=== PATIENT | female | born 1950 | race Caucasian/White ===

== ENCOUNTER 2019-11-12 07:23 | Outpatient (CLI) | payer MEDICARE, SELFPAY ==
[2019-11-12 08:55] LABS: Alanine Aminotransferase 20 U/L (14-59); Aspartate Amino Transferase 17 U/L (15-37); Cholesterol 177 mg/dL (0-200); Creatine Kinase 82 U/L (26-192); HDL Direct 61 mg/dL (40-60); LDL Cholesterol Calculated 104 mg/dL (<130); Triglycerides 61 mg/dL (0-150)
== END 2019-11-12 07:24 | disposition home or self-care (01) ==
LOC: CHSLAB 07:29
PROVIDERS: PCP Internal Medicine; Visit Provider Internal Medicine
DX: E78.2 Mixed hyperlipidemia (principal)
CPT/HCPCS: 36415; 80061; 82550; 84450; 84460

== ENCOUNTER 2019-11-30 10:19 | Outpatient (CLI) | payer MEDICARE, OTHER, SELFPAY ==
--- NOTE | ~2019-11-30 | XR_ITS ---
XR hip BI 2V w AP pelvis 11/30/2019 11:00 Indication: Left hip pain and swelling for one year Procedure: AP pelvis and 2 views of each hip Comparison: No prior studies for comparison. Findings: There is severe osteoarthritis of the left hip with subchondral cyst formation and complete loss of joint space superiorly. There is remodeling of the left femoral head. No acute fracture or t raumatic malalignment. Impression: 1: Severe osteoarthritis of the left hip. Reviewed, dictated and finalized at location B. F SOFTWARE ENGINEER Impression: 1: Severe osteoarthritis of the left hip.
== END 2019-11-30 10:20 | disposition home or self-care (01) ==
PROVIDERS: PCP Internal Medicine; Visit Provider Internal Medicine
DX: M25.552 Pain in left hip (principal); M25.452 Effusion, left hip
CPT/HCPCS: 73521

== ENCOUNTER 2019-12-01 07:32 | Outpatient (CLI) | payer MEDICARE, OTHER, SELFPAY ==
--- NOTE | ~2019-12-01 | MR_ITS ---
EXAMINATION: MR hip LT wo con DATE: 12/01/2019 08:45 INDICATION: Left hip pain. TECHNIQUE: Magnetic resonance imaging (MRI) of the left hip was performed without intravenous contras t. Sequences included axial and coronal PD-weighted FS FSE and axial T1-weighted FSE of the pelvis. S equences of the hip included 2D FIESTA, T1-weighted fast GRE, and axial, coronal, and sagittal PD-noreen ghted FS FSE. COMPARISON: Pelvis and left hip radiographs 11/30/2019 FINDINGS: Bones/cartilage: Bone alignment is normal. No fracture. There is severe lumbar spondylosis. Right hip joint is unremar kable in large qxasn-av-vohy images. Left hip joint demonstrates extensive full-thickness cartilage l oss, large subchondral cysts in the femoral head and acetabulum, flattening of superior femoral head, and enlargement of the acetabulum. Labrum: There is extensive tearing of the left acetabular labrum. Fluid: There is a large left hip joint effusion. There is moderate right-sided trochanteric bursitis and mil d left-sided trochanteric bursitis. Soft tissues: The iliopsoas tendons and gluteal tendons are normal. There is a partial tear of right hamstring orig in. There is mild tendinopathy of left hamstring origin. IMPRESSION: 1. Advanced left hip osteoarthritis. 2. Large left hip joint effusion. Reviewed, dictated and finalized at location A.
== END 2019-12-01 07:33 | disposition home or self-care (01) ==
LOC: CHSIMG 07:34
PROVIDERS: PCP Internal Medicine; Visit Provider Internal Medicine
DX: M25.552 Pain in left hip (principal); M87.9 Osteonecrosis, unspecified
CPT/HCPCS: 73721

== ENCOUNTER 2019-12-24 12:56 | Outpatient (RCR) | payer MEDICARE, OTHER, SELFPAY ==
--- NOTE | 2019-12-24 14:28 | PTOPEVAL ---
Thank you for referring this patient to [facility]. Please review, sign, date and return this plan of care DIRK. I agree with and certify that the following plan of care is medically necessary. Referring Physician Date Admitting Provider: Attending Provider: Jasmeet Poole MD Referring Provider: *PT Outpatient Evaluation Start: 12/24/19 13:08 Freq: Status: Active Protocol: Document 12/24/19 13:09 CONNIE (Rec: 12/24/19 14:26 CONNIE [id number]) Therapy Assessment Status Assessment Status Assessment Status Evaluation Evaluation Information Problem Diagnosis severe left hip OA Onset 12/19/19 Subjective Information Pt. reports that she has been Query Text:As Reported By Patient/ experiencing on/off hip pain Family for many years. She has been using meidcation, however pain has gotten more severe. She describes most pain in the left groin and go into the left thigh. She reports that pain will wake her from sleep at night. She reports that she has to sleep on her right side. She reports that her goal is to walk normal. Prior Level of Function Activity Level (Last 3 Months) Occupation part-time office work Hand Dominance Right Activity of Daily Living Ability Independent Indoor/Home Mobility Independent Community Mobility Independent Stairs Ability Independent Functional Cognition (Planning, Shopping Independent , Taking Medications) Cooking No Cleaning Yes Laundry Yes Shopping Yes Driving Yes Pain Assessment Timing of Pain Assessment Timing of Pain Assessment Pre-Treatment Pain Scale Pain Scale Used Numeric (1 - 10) Self Report Pain Assessment Left Hip(s) Reported Pain Level 5 Pain Frequency Continuous Lowest Pain Intensity 5 Greatest Pain Intensity 10 Pain Aggravating Factors Bending,Exercise/Activity, Prolonged Position Pain Score Pain Score 5: Self Report Lower Extremity Muscle Strength Testing General Lower Extremity Strength Gross Lower Extremity Strength right hip flexion 5/5, left hip flexion 3/5, right knee flexion 5/5, left knee flexion
== END 2019-12-24 16:07 | disposition home or self-care (01) ==
LOC: CHSPT 12:56
PROVIDERS: PCP Internal Medicine; Visit Provider Orthopaedic Surgery
DX: M16.12 Unilateral primary osteoarthritis, left hip (principal)
CPT/HCPCS: 97110; 97116; 97161

== ENCOUNTER 2020-03-07 09:35 | Outpatient (CLI) | payer MEDICARE, OTHER, SELFPAY ==
--- NOTE | ~2020-03-07 | XR_ITS ---
EXAMINATION: XR chest 2V DATE: 03/07/2020 11:04 INDICATION: Preoperative evaluation with abnormal EKG. TECHNIQUE: PA and lateral views of the chest were obtained. COMPARISON: Chest radiograph dated 01/21/2010 FINDINGS: Calcified nodule in the left midlung zone consistent with old granulomatous disease. Mild linear disc oid atelectasis at the right lower lung zone. No other airspace opacities, pulmonary edema, pleural e ffusion or pneumothorax. The cardiomediastinal silhouette is normal. Mild thoracic dextrocurvature wi th moderate to severe thoracolumbar spondylosis. IMPRESSION: 1. Mild discoid atelectasis in the right lower lung. No other acute cardiopulmonary disease. Reviewed, dictated and finalized at location A. IMPRESSION: 1. Mild discoid atelectasis in the right lower lung. No other acute cardiopulmo nary disease.
--- NOTE | 2020-03-07 10:32 | ECG_ITS ---
Measurements Intervals [place] Rate: 64 P: 58 VA: 165 QRS: 5 QRSD: 89 T: 60 QT: 410 QTc: 425 Interpretive Statements SINUS RHYTHM EARLY PRECORDIAL R/S TRANSITION BASELINE ARTIFACT- I, II, III, AVR, AVL, AVF BORDERLINE ECG Electronically Signed On 03-07-2020 10:49:02 CDT by [facility] So D.O.
[2020-03-07 11:05] LABS: Basophils Percent Auto 0.7 % (0.2-1.2); Eosinophils Absolute Auto 0.1 K/mm3 (0-0.3); Eosinophils Percent Auto 1.3 % (0-4.4); Hematocrit 38.7 % (37.0-47.0); Hemoglobin 12.8 g/dL (12.0-15.0); Immature Granulocyte Absolute 0.02 K/mm3 (0.00-0.031); Immature Granulocyte Percent A 0.3 % (0-0.5); Lymphocytes Absolute Auto 1.61 K/mm3 (0.9-3.2); Lymphocytes Percent Auto 27.1 % (18.3-44.2); Mean Corpuscular HGB Conc 33.1 g/dl (32-36); Mean Corpuscular Hemoglobin 31.5 pg (26-34); Mean Corpuscular Volume 95.3 fl (80-100); Monocytes Absolute Auto 0.5 K/mm3 (0.1-0.6); Monocytes Percent Auto 7.6 % (2.6-8.5); Neutrophils Absolute Auto 3.7 K/mm3 (1.3-6.7); Platelet Count Result 244 k/mm3 (150-375); Red Blood Count 4.06 M/mm3 (4.2-5.4); Red Cell Distribution Width 12.9 % (11.5-14.5); White Blood Count 5.9 K/mm3 (4.5-10.0)
[2020-03-07 11:16] LABS: Hemoglobin A1C 5.8 % (<5.7); Urine Cotinine NEGATIVE
[2020-03-07 11:25] LABS: Albumin Level 4.6 g/dL (3.5-5.1); Blood Urea Nitrogen 20 mg/dL (7-17); Calcium 9.2 mg/dL (8.4-10.2); Carbon Dioxide 30 mmol/L (22-30); Chloride 103 mmol/L (98-107); Estimated Glomerular Filt Rate > 60; Glucose 102 mg/dL (65-105); Potassium 3.6 mmol/L (3.4-5.0); Sodium 140 mmol/L (137-145)
== END 2020-03-07 09:36 | disposition home or self-care (01) ==
LOC: ANHSURGERY 09:38
PROVIDERS: PCP Internal Medicine; Visit Provider Orthopaedic Surgery
DX: Z01.818 Encounter for other preprocedural examination (principal); M16.12 Unilateral primary osteoarthritis, left hip; J98.11 Atelectasis
CPT/HCPCS: 36415; 71046; 80048; 80307; 82040; 83036; 85025; 87070; 93005

== ENCOUNTER 2020-03-21 00:14 | Outpatient (CLI) | payer MEDICARE, OTHER, SELFPAY ==
[2020-03-21 20:58] LABS: SARS-CoV-2 RNA PCR Negative
== END 2020-03-21 00:15 | disposition home or self-care (01) ==
LOC: ANHCOVIDDT 00:14
PROVIDERS: PCP Internal Medicine; Visit Provider Orthopaedic Surgery
DX: Z01.812 Encounter for preprocedural laboratory examination (principal); Z11.59 Encounter for screening for other viral diseases; M16.12 Unilateral primary osteoarthritis, left hip
CPT/HCPCS: 87635; C9803; U0003

== ENCOUNTER 2020-03-24 01:10 | Day surgery (SDC) | payer MEDICARE, OTHER, SELFPAY ==
[2020-03-07 10:33] VITALS: BP 151/78; PULSE 68; RESP 16; TEMP 36.6; O2SAT 99; BMI 24.3
[2020-03-07 10:55] VITALS: BMI 24.3
--- NOTE | 2020-03-21 12:22 | HP_ITS ---
DATE OF SERVICE: 03/24/2020 ADMIT DIAGNOSIS: Degenerative joint disease, left hip. HISTORY OF PRESENT ILLNESS: The patient is a 70-year-old female patient of Dr. Wang who presents today for an anterior left total hip arthroplasty. She has been having pain in this hip for 2 years, has progressively worsened to the point now where she has severe pain in the groin anterior lateral hip. She is on Celebrex, which seems to help a little bit. Unfortunately, she continues to have rather severe pain every day. She is miserable. She has x-rays that showed that she has advanced arthritis in that left hip. She has reached to a point where she would rather proceed with total hip arthroplasty rather continue with nonsurgical treatment. PAST MEDICAL AND SURGICAL HISTORY: She has a history of uterine cancer in 1988. She has had hysterectomy in 1989. She has a history of DVT following low back surgery in 2010. She has had 2 low back surgeries in the past, herniated in 2010. CURRENT MEDICATIONS: Takes 1. Celebrex 200 mg daily. 2. Citalopram 10 mg a day. 3. Lovastatin 20 mg daily. ALLERGIES: NO KNOWN DRUG ALLERGIES. FAMILY HISTORY: Significant for diabetes and stroke. SOCIAL HISTORY: She is a nonsmoker. PHYSICAL EXAMINATION: VITAL SIGNS: She is 5 feet tall and 132 pounds. Other vital signs per nursing on the morning of surgery. HEENT: Grossly normal. LUNGS: Clear bilaterally. HEART: Regular rate and rhythm. SKIN: Around her left hip and groin is all normal. EXTREMITIES: She has nvgg-ht-unvjrgon tenderness over the greater trochanter, but normal abduction strength in lateral position. There is crepitus with range of motion of the hip. She has flexion to 110 degrees with pain into the lateral hip. Internal rotation is 15 degrees short of neutral. External rotation is to 25. Stinchfield maneuver causes her pain in the anterolateral hip. Her left leg looks about a quarter of an inch shorter than the right. She has no edema in lower extremity. 2+ dorsalis pedis and posterior tibial pulse. Sensory motors are intact in the left lower extremity. IMAGING DATA: X-rays demonstrate severe xwvf-bk-eivs arthritis. There is collapse of the femoral head with large cyst within the femoral head as well as the acetabulum. IMPRESSION: The patient has advanced arthritis of the left hip with severe symptoms. Again, she feels she is ready to proceed with total hip arthroplasty. Surgical procedure as well as risks and complications were discussed. All questions were answered and we will proceed. The patient will see Dr. Wang for presurgical clearance. She will continue with her Celebrex until the time of surgery, but avoid any aspirin and ibuprofen products 1 week prior. Her nasal swab was negative. Chem panel was all within normal limits. Creatinine 0.9. GFR is greater than 60. Hemoglobin 12.8, platelets 244. PLAN: To use Eliquis for DVT prophylaxis. D I MT: Kim
[2020-03-24] VITALS (23 sets, daily range): BP systolic 106–146; BP diastolic 50–84; PULSE 70–110; RESP 16–20; TEMP 35.9–36.9; O2SAT 93–100
--- NOTE | ~2020-03-24 | XR_ITS ---
EXAMINATION: XR hip LT 1V w AP pelvis DATE: 03/24/2020 11:19 INDICATION: Left total hip arthroplasty TECHNIQUE: 2 views left hip FINDINGS: There is a left total hip arthroplasty in expected position. Subcutaneous gas with soft ti ssue swelling are consistent with recent surgery. There is a catheter in the pelvis, presumably in th e bladder. IMPRESSION: 1. Recent left total hip arthroplasty. Reviewed, dictated and finalized at location A.
--- NOTE | ~2020-03-24 | XR_ITS ---
EXAMINATION: XR surgery orthopedic DATE: 03/24/2020 10:55 INDICATION: Postoperative evaluation following left total hip arthroplasty TECHNIQUE: Anteroposterior and lateral views of the left hip were obtained. COMPARISON: 11/30/2019 FINDINGS: Interval placement of a left total hip arthroplasty which appears well seated in near anatomic alignm ent. Expected subcutaneous gas in the postoperative bed. No fractures identified. Ring catheter pro jects over expected position. IMPRESSION: 1. Left total hip arthroplasty, negative for postoperative purposes. Reviewed, dictated and finalized at location A.
[2020-03-24] MEDS: LACTATED RINGERS 1,000 ML 30 ML IV CONT ×2 (06:30→11:22)
--- NOTE | 2020-03-24 06:44 | WPDANESEPPF ---
Anes - Initial Pre Proc Eval Procedure: Operation Date: 03/24/20 07:30 Proposed Procedures p Left Total Hip Arthroplasty, Direct Anterior Approach - Jasmeet Poole MD Date/Time: 03/24/20 06:44 Surgeon: Jasmeet Poole MD Pre Op Diagnosis: Severe OA Left Hip Patient Data Age: 70 Gender: F Height: 5 ft 1 in Weight: 58.3 kg Last Vital Signs Temp 36.6 C 03/07/20 10:33 Pulse 68 03/07/20 10:33 Resp 16 03/07/20 10:33 BP 151/78 H 03/07/20 10:33 Pulse Ox 99 03/07/20 10:33 Allergies Allergy/AdvReac Type Severity Reaction Status Date / Time No Known Allergies Allergy Verified 03/07/20 10:01 Home Medications Medication Instructions Recorded Confirmed Type acetaminophen [Tylenol Arthritis 1,300 mg PO DAILY 03/07/20 03/07/20 History Pain] celecoxib [Celebrex] 200 mg PO DAILY 03/07/20 03/07/20 History escitalopram oxalate [Lexapro] 10 mg PO DAILY 03/07/20 03/07/20 History Patient hx anesthesia problems: post op nausea/vomiting Family hx anesthesia problems: none PMFSH Past Medical History Medical History (Updated 03/24/20 @ 06:45 by Manny Tucker MD) Anxiety Chronic pain syndrome Uterine cancer Social History Social History Gender identity (if verbalized by the patient): Female Anes - Eval Final PreProcedure Day of Procedure 03/24/20 06:44 Patient weight: normal Heart: regular rate and rhythm Lungs: clear to auscultation Airway: Mallampati scale class II Neurological: alert and oriented Last oral intake: >/= 8 hours ASA classification: III Emergent: no Anesthetic plan: proceed Anesthesia type and monitoring: general ETT and standard monitoring Informed Consent: The patient's anesthetic plan and its attendant risks and benefits were discussed with the patient/family/POA. Questions were solicited and answers provided to the satisfaction of the patient/family/POA.
[2020-03-24] MEDS: SCOPOLAMINE 1.5 MG PATCH TRANSDERM (07:15)
--- NOTE | 2020-03-24 07:19 | WPDHPUPDATE1 ---
History and Physical Update Update Date/Time: 03/24/20 07:19 History and Physical has been reviewed, including an updated exam of the patient. There are NO changes in the patient's condition. Risks, benefits, and alternatives have been discussed and questions answered. Patient agrees to proceed with procedure.
[2020-03-24] MEDS: TRANEXAMIC ACID 1,000MG/ISO100 1,000 MG/100 ML BAG 200 MG IVPB (07:20)
[2020-03-24] MEDS: ceFAZolin 2 GM/D5W 50 ML 2 GM/50 ML BAG IVPB (07:35)
[2020-03-24] MEDS: ceFAZolin SODIUM 1 GM VIAL 3 GM IRRIGATION (08:28)
[2020-03-24] MEDS: TRANEXAMIC ACID 1,000 MG/10 ML AMPUL 1000 MG IV PUSH (10:42)
[2020-03-24] MEDS: ceFAZolin SODIUM 1 GM VIAL IV PUSH (10:43)
--- NOTE | 2020-03-24 12:06 | SUR.PHASEI ---
1205 H&H DRAWN & SENT TO LAB.
[2020-03-24 12:11] LABS: Hematocrit 32.2 % (37.0-47.0); Hemoglobin 10.9 g/dL (12.0-15.0)
--- NOTE | 2020-03-24 13:23 | ADMGEN ---
This patient, Deisy Mittal, was admitted to IMU Room 202-. Patient/family oriented to hospital policies and general routines including ID bracelet, bed and alarms, visiting hours, pain management, procedures, bathroom and other care routines, personal items, smoking policy, room service/diet, and visiting hours. Valuables list has been completed. Information on how to activate the Rapid Response Team has been discussed. Patient/Family are encouraged to report perceived risks to care and to ask questions if they do not understand what they are told or what they should do.
[2020-03-24] MEDS: SODIUM CHLORIDE 0.9% IV 1,000 ML 125 ML IV CONT (14:05)
[2020-03-24 15:30] LABS: Blood Urea Nitrogen 17 mg/dL (7-17); Calcium 8.6 mg/dL (8.4-10.2); Carbon Dioxide 27 mmol/L (22-30); Chloride 104 mmol/L (98-107); Estimated CRCL calculation 44 ml/min; Estimated Glomerular Filt Rate > 60; Glucose 163 mg/dL (65-105); Magnesium 1.5 mg/dL (1.6-2.3); Potassium 3.7 mmol/L (3.4-5.0); Sodium 136 mmol/L (137-145)
--- NOTE | 2020-03-24 15:45 | PM.CNCAR ---
Assessment and Plan Assessment and plan (1) Ventricular tachycardia: Code(s): I47.2 - Ventricular tachycardia <Kristine Zarate APRN - Last Filed: 03/24/20 16:44> Status: Acute <Kristine Zarate APRN - Last Filed: 03/24/20 16:44> Assessment and Plan: During surgery today. No telemetry strips are available. BMP and magnesium were drawn. Potassium 3.7. Will supplement with 40 mEq today. Magnesium 1.5 today. Will supplement with 3 g IV. She states she does take an axuf-twp-fjxgxbo magnesium supplement. BMP and magnesium in the morning. EKG personally reviewed with Dr Alfonso at 1633: Sinus rhythm at 89 bpm. Nonspecifice T-wave abnormality. When compared to EKG don on 03/07/2020 T-Wave abnormality now present. monitoring analyst overnight Check echo. <Kristine Zarate APRN - Last Filed: 03/24/20 16:44> (2) Hypomagnesemia: Code(s): E83.42 - Hypomagnesemia <Kristine Zarate APRN - Last Filed: 03/24/20 16:44> Status: Acute <Kristine Zarate APRN - Last Filed: 03/24/20 16:44> Assessment and Plan: Magnesium as above <Kristine Zarate APRN - Last Filed: 03/24/20 16:44> Additional Plan Plan discussed with Dr Alfonso by phone at 1619 03/24/2020 <Kristine Zarate APRN - Last Filed: 03/24/20 16:44> History of Present Illness History of Present Illness Consult date/time: 03/24/20 15:20 <Kristine Zarate APRN - Last Filed: 03/24/20 16:44> Requesting physician: Jordy Zhang PA <Kristine Zarate APRN - Last Filed: 03/24/20 16:44> Consult reason: Other (Nonsustained ventricular tachycardia during surgery) <Kristine Zarate APRN - Last Filed: 03/24/20 16:44> Reason For Visit: Severe OA Left Hip <Kristine Zarate APRN - Last Filed: 03/24/20 16:44> Narrative: 70-year-old female undergoing anterior left total hip arthroplasty today experience nonsustained ventricular tachycardia during surgery. According to the anesthesia note, she was having short runs of nonsustained VT and was hemodynamically stable. This occurred approximately 2 hours into surgery. She received 100 mg of lidocaine. On telemetry she has not had any ventricular arrhythmias. She has no cardiac history. She denied chest pain, pressure, tightness or squeezing. No exertional shortness of breath with usual activities of daily living. She has not been very active due to pain in her left hip. She denied any lightheadedness, dizziness or syncope. Hyperlipidemia has been treated with diet. She has never smoked. She does have a family history of coronary artery disease with her father having WI at age 47. <Kristine Zarate APRN - Last Filed: 03/24/20 16:44> Review of Systems Review of Systems: All systems reviewed & are unremarkable except as noted in HPI and below <Kristine Zarate APRN - Last Filed: 03/24/20 16:44> Constitutional: Constitutional: Denies fatigue, Denies lethargy, Denies night sweats and Denies weakness <Kristine Zarate APRN - Last Filed: 03/24/20 16:44> Eyes: Eyes: Reports blurry vision (Related to cataracts) <Kristine Zarate APRN - Last Filed: 03/24/20 16:44> ENT: Reports Normal hearing present, Denies vertigo, Denies dizziness, Reports headache(s) (Rare), Denies epistaxis, Reports post nasal drip, Denies tinnitus and Denies sore throat <Kristine Zarate APRN - Last Filed: 03/24/20 16:44> Cardiovascular: Cardiovascular: Denies chest pain with activity, Denies diaphoresis, Denies syncope, Denies rapid heart rate, Denies pedal edema, Denies lightheadedness, Denies dyspnea on exertion, Denies orthopnea and Denies paroxysmal nocturnal dyspnea <Kristine Zarate APRN - Last Filed: 03/24/20 16:44> Respiratory: Respiratory: Reports cough (Occasional), Denies dyspnea on exertion and Denies wheezing <Kristine Zarate, MARKET RESEARCH ANALYST - Last Filed: 03/24/20 16:44> Gastrointestinal: Gastrointestinal: Denies abdominal pain, Denies bloating, Denies change in stool khalif
--- NOTE | 2020-03-24 15:52 | OP_ITS ---
DATE OF PROCEDURE: 03/24/2020 PREOPERATIVE DIAGNOSIS: Advanced osteoarthritis, left hip. POSTOPERATIVE DIAGNOSIS: Advanced osteoarthritis, left hip. PROCEDURE: Direct anterior approach, left total hip arthroplasty. DOPSTER: Jordy Zhang P.A.-C. DESCRIPTION OF PROCEDURE: The patient was brought to the operating room and general anesthesia was administered. The feet were padded. SCDs applied to the legs and boots applied. She was placed on the [employer] table. Left hip prepped and draped in usual fashion. She received 2 g of Ancef, weight based vancomycin, and 1 g of tranexamic acid preoperatively. The left hip was prepped and draped in usual fashion. A 10 cm incision was made 3 cm lateral to the ASIS. Dissection was carried down to the fascia over the tensor fascia sana, which was longitudinally incised and elevated off the anterior 1/2 of the tensor fascia sana muscle. Interval between tensor fascia sana and rectus femoris was developed. Crossing branches of ascending branch, lateral femoral circumflex vessels were isolated, ligated with suture, and divided. Retractors were placed over anterior medial capsule. The hip abducted, internally rotated, and gluteus minimus elevated off lateral capsule. Standard capsulotomy was performed. Femoral neck osteotomy was made according to preoperative templating. A napkin ring of femoral neck was removed and head removed. It measured 48 mm in diameter. The acetabulum was exposed. Labrum excised. The leg was externally rotated, extended and the interval between piriformis tendon and conjoined tendon was incised and this was enough to allow the femur to mobilize anteriorly and the piriformis to flip posterolaterally. We found we did not have to release the conjoined tendon. With the leg back in horizontal position and external rotation, acetabulum was exposed and we medialized with a 45 reamer, went up to 47 and then 48 as the 47 did not reach the periphery and the 48 trial was loose still. The 49 reamer reached the periphery except for the far posterior superior rim of the acetabulum where there was bone wear. The 49 trial fit snugly. The size 50 Biomet G 2 cup was impacted in place and achieved an excellent press-fit. The anterior shell was a millimeter under the anterior wall and about 5 or 6 mm of shell was exposed posterolateral to the posterolateral rim where there was bone wear. A single screw was placed up into the ilium, which also obtained excellent purchase. I should mention that before we reamed with a 49 reamer, we were in view of the anterior and superior acetabular cyst, which we carefully curetted with curettes and packed with cancellous bone that we took from the center of the napkin ring of bone from the femoral neck and some of the femoral head and the cyst was quite sizable for a small person. We then reamed with the 48 in reverse and then reamed with a 49 for final reaming. We placed the insertion hole screw cap and impacted the 36 mm inner diameter liner, which fully seated. The leg was externally rotated and extended and we broached the femur up to a size 8. We trialed and the -6 was a little bit too loose. The -3 was stable and using fluoro, we could see that we had equal leg lengths with a -3. We calcar planed and found that there was still a little bit of wiggle in the size 8 broach and we inserted the size 9 broach, which took a little bit more work to seat flush with the neck cut and was stable and torsional at varus and valgus stress. We chose the size 9 taper lock standard offset stem and this was impacted and fully seated coming to rest about a millimeter above the calcar plane neck cut would go no further. We trialed and again the -6 was a little bit loose and the -3 was trialed and was more appropriate. We irrigated the wound again
--- NOTE | 2020-03-24 16:09 | ECG_ITS ---
Measurements Intervals [place] Rate: 89 P: 62 VT: 166 QRS: 12 QRSD: 86 T: 10 QT: 383 QTc: 468 Interpretive Statements SINUS RHYTHM BORDERLINE ST-T WAVE ABNORMALITY- DIFFUSE LEADS BASELINE ARTIFACT- I, II, III, AVF, V2 BORDERLINE ECG Electronically Signed On 03-24-2020 17:04:29 CDT by [facility] So D.O.
--- NOTE | 2020-03-24 16:13 | PM.IMCN ---
Assessment and Plan Assessment and plan (1) Ventricular tachycardia: Code(s): I47.2 - Ventricular tachycardia Status: Acute Assessment and Plan: Several beats of NSVT were reported intra-operatively. There are no telemetry stips for review at this time. She was given 100mg of lidocaine per anesthesiology. She has no prior cardiac hx. Cardiology is on board and recommendations are greatly appreciated. Potassium is 3.7mg/dL and she will be given 40mEq PO potassium chloride. Magnesium is 1.5mg/dL and she will be given 3g IV magnesium sulfate. Continue telemetry. Plan for echocardiogram and 12 lead EKG. Continue to monitor electrolytes. (2) Status post total hip replacement, left: Code(s): Z96.642 - Presence of left artificial hip joint Status: Acute Assessment and Plan: The patient is s/p left total hip arthroplasty with a direct anterior approach by Dr. Poole due to severe, disabling, lifestyle-limiting pain. She tolerated the procedure well and her pain is well-controlled. She did have several runs of NSVT as above. Post-op care including DVT prophylaxis, wound/wound vac care, PT/OT and weight bearing, and pain management per orthopedic surgery. Continue to monitor. (3) Hypomagnesemia: Code(s): E83.42 - Hypomagnesemia Status: Acute Assessment and Plan: Magnesium was low at 1.5mg/dL. She will be given 3g IV magnesium sulfate. She does report that she takes an aqez-aij-xetzuqu magnesium supplement at home. Continue to monitor with repeat magnesium tomorrow. (4) Anxiety: Code(s): F41.9 - Anxiety disorder, unspecified Status: Acute Assessment and Plan: Stable. Continue lexapro. (5) Anemia: Qualifiers: Anemia type: unspecified type Qualified Code(s): D64.9 - Anemia, unspecified Code(s): D64.9 - Anemia, unspecified Status: Acute Assessment and Plan: Hb was 12.8 and Hct 38.7 03/07/20 on pre-op lab evaluation. Repeat Hb is 10.9 and Hct 32.2 post-op. This is likely due to acute blood loss from her surgery. EBL . Plan to continue to monitor H&H closely. Transfuse PRN Hb <7. (6) Elevated random blood glucose level: Code(s): R73.09 - Other abnormal glucose Status: Acute Assessment and Plan: Random glucose was 163. Hemoglobin A1C was 5.8 03/07/20. Continue to monitor FBS daily. (7) Hyperlipidemia: Qualifiers: Hyperlipidemia type: unspecified Qualified Code(s): E78.5 - Hyperlipidemia, unspecified Code(s): E78.5 - Hyperlipidemia, unspecified Status: Acute Assessment and Plan: She reports a hx of hyperlipidemia and previously on a cholesterol medication which she stopped taking. Will check a lipid panel. (8) DVT prophylaxis: Code(s): Z29.9 - Encounter for prophylactic measures, unspecified Status: Acute Assessment and Plan: Per ortho. Eliquis has been ordered for tomorrow. Continue SCDs per ortho. HPI Data of Consult Consult date: 03/24/20 Requesting Physician: Jasmeet Poole MD Primary Care Provider: Veronica Wang MD Consult Narrative Narrative: Deisy Mittal is a 70 year old female with PMH significant for osteoarthritis, uterine cancer s/p hysterectomy and salpingo-oophorectomy, and anxiety who presented to [facility] 03[facility]24[facility]20 for an elective left total hip arthroplasty by Dr. Poole. She had a 2 year history of severe and disabling left hip pain in the setting of advanced osteoarthritis and failed conservative management. The hospitalist service is asked to see her in consultation as she developed several runs of nonsustained ventricular tachycardia during surgery. She remained hemodynamically stable during the episode. There are no temeletry strips available for review from the episodes at this time. She was given 100mg of lidocaine and admitted to the IMU for continued telemetry monitoring. Cardiology was
[2020-03-24] MEDS: POTASSIUM CHLORIDE 20 MEQ PACKET (FOR LIQUID) 40 MEQ PO (16:48)
[2020-03-24] MEDS: SENNA/DOCUSATE SODIUM TABLET 2 TAB PO (16:49)
[2020-03-24] MEDS: MAGNESIUM SULF 2 GM/WATER 50ML 2 GM/50 ML BAG IVPB (18:04)
[2020-03-24] MEDS: ACETAMINOPHEN 500 MG TABLET 1000 MG PO ×2 (18:08→23:15)
[2020-03-24] MEDS: MAGNESIUM SULF 1 GM/D5W 100 ML 1 GM/100 ML BAG IVPB (18:43)
[2020-03-24] MEDS: FAMOTIDINE 20 MG TABLET PO (21:24)
[2020-03-25] VITALS (7 sets, daily range): BP systolic 104–132; BP diastolic 45–61; PULSE 66–94; RESP 16–18; TEMP 36.1–36.7; O2SAT 97
--- NOTE | 2020-03-25 | ECHO_ITS ---
Patient Info Name: Deisy Mittal Age: 70 years : 1950 Gender: Female Ht: 61 in Wt: 127 lbs BSA: 1.58 m2 HR: 82 bpm BP: 104 / 45 mmHg Technical Quality: Good Exam Date: 03/25/2020 9:23 AM Exam Location: [facility] Pulmonary Patient Status: Outpatient Admit Date: 03/24/2020 Staff Ordering Physician: Kristine Zarate APRN Shactor: Danie Jacques, KANE, RT Attending Provider: Jasmeet Poole MD Referring Physician: Elliot WHIPPLE; Exam Type: CA echo doppler color flow Study Info Indications I47.0 - Re-entry ventricular arrhythmia Complete two-dimensional, color flow and Doppler transthoracic echocardiogram is performed. Summary 1. Normal LV size and wall thickness; normal LV systolic and diastolic function, ejection fraction more than 70%. Global longitudinal strain-26%. Normal valvular structure, trace MR. Normal pericardium, no significant pericardial effusion. Left Ventricle Left ventricular chamber dimension is normal. Left ventricular systolic function is normal, estimated at >70%. There is no increased left ventricular wall thickness. Left ventricular septal wall motion is normal. The left ventricular diastolic function is normal. Right Ventricle Right ventricular chamber dimension is normal. Right ventricular systolic function is normal. Left Atria Left atrial chamber dimension is normal. Right Atria Right atrial chamber dimension is normal. Aortic Valve There is no aortic valve sclerosis. There is no aortic valve stenosis. There is trace aortic valve regurgitation. Pulmonic Valve The pulmonic valve is normal. There is mild pulmonic regurgitation. Mitral Valve The mitral valve has normal leaflets. There is no mitral valve stenosis. There is trace mitral valve regurgitation. Tricuspid Valve There is no significant tricuspid valve stenosis. There is trace tricuspid valve regurgitation. Pericardium/Pleural The pericardium appears normal. There is no pericardial effusion. Aorta The aortic root size at the sinus of Valsalva is normal. The prox ascending aorta size is normal. Left Ventricular Outflow Tract Name Value Normal LVOT 2D LVOT Diameter 1.9 cm LVOT Doppler LVOT Peak Gradient 8 mmHg LVOT Mean Gradient 4 mmHg LVOT VTI 25 cm LVOT VTI/AV VTI Ratio 0.9 LVOT Stroke Volume 69 ml LVOT CO 5.7 l/min LVOT CI 3.6 l/min/m2 Mitral Valve Name Value Normal MV Doppler MV Decel Bullock 464 cm/s2 MV PHT 55 ms MV Area (PHT) 4.0 cm2 4.0-5.0 MV Diastolic Function
[2020-03-25 05:02] LABS: Basophils Percent Auto 0.1 % (0.2-1.2); Hematocrit 30.8 % (37.0-47.0); Hemoglobin 10.3 g/dL (12.0-15.0); Immature Granulocyte Absolute 0.07 K/mm3 (0.00-0.031); Immature Granulocyte Percent A 0.4 % (0-0.5); Lymphocytes Absolute Auto 1.41 K/mm3 (0.9-3.2); Lymphocytes Percent Auto 8.6 % (18.3-44.2); Mean Corpuscular HGB Conc 33.4 g/dl (32-36); Mean Corpuscular Hemoglobin 31.6 pg (26-34); Mean Corpuscular Volume 94.5 fl (80-100); Monocytes Absolute Auto 1.1 K/mm3 (0.1-0.6); Monocytes Percent Auto 6.4 % (2.6-8.5); Neutrophils Absolute Auto 13.9 K/mm3 (1.3-6.7); Neutrophils Percent Auto 84.5 % (45.5-73.1); Platelet Count Result 233 k/mm3 (150-375); Red Blood Count 3.26 M/mm3 (4.2-5.4); Red Cell Distribution Width 12.8 % (11.5-14.5); White Blood Count 16.5 K/mm3 (4.5-10.0)
[2020-03-25 05:15] LABS: Blood Urea Nitrogen 12 mg/dL (7-17); Calcium 8.7 mg/dL (8.4-10.2); Carbon Dioxide 27 mmol/L (22-30); Chloride 105 mmol/L (98-107); Cholesterol 181 mg/dL (0-200); Estimated CRCL calculation 39 ml/min; Estimated Glomerular Filt Rate > 60; Glucose 106 mg/dL (65-105); HDL Direct 50 mg/dL; Magnesium 2.8 mg/dL (1.6-2.3); Potassium 4.4 mmol/L (3.4-5.0); Sodium 137 mmol/L (137-145); Triglycerides 57 mg/dL (<150)
[2020-03-25 05:26] LABS: LDL Cholesterol Direct 94 mg/dL
[2020-03-25] MEDS: ACETAMINOPHEN 500 MG TABLET 1000 MG PO ×2 (06:18→12:21)
--- NOTE | 2020-03-25 06:24 | PM.PNORT ---
Progress Note: A&P Additional Plan POD 1 alert min pain , pt has been up to restroom multiple times overnight and doing well, NSR-overnight, card. has seen pt-plan an echo today, pt has changes on EKG post-op relative to pre-op. labs-noted, will plan to send home when cardiology feels she is stable, no episodes of V-tach since surg Subjective Subjective Date/Time Seen: 03/25/20 06:24 Objective Data Vital Signs Vital Signs: Vital Signs - 24 hr 03/24/20 11:22 03/24/20 11:35 03/24/20 11:50 Temperature 36.4 C Pulse Rate 110 H 95 97 Respiratory Rate 16 18 18 Blood Pressure 145/75 H 118/59 L 108/62 Pulse Oximetry 98 97 95 03/24/20 12:05 03/24/20 12:20 03/24/20 12:35 Temperature 36.3 C L Pulse Rate 97 93 90 Respiratory Rate 20 20 20 Blood Pressure 106/57 L 130/56 L 111/57 L Pulse Oximetry 93 97 98 03/24/20 12:50 03/24/20 13:26 03/24/20 13:30 Temperature 36.5 C 36.9 C Pulse Rate 98 91 94 Respiratory Rate 16 18 Blood Pressure 116/61 118/62 Pulse Oximetry 98 96 03/24/20 14:00 03/24/20 14:15 03/24/20 16:00 Temperature 36.6 C Pulse Rate 88 96 88 Respiratory Rate 16 Blood Pressure 118/58 L Pulse Oximetry 98 03/24/20 16:20 03/24/20 16:59 03/24/20 18:00 Temperature 35.9 C L Pulse Rate 88 87 Respiratory Rate 18 Blood Pressure 123/56 L Pulse Oximetry 100 99 03/24/20 19:49 03/24/20 20:00 03/24/20 20:22 Temperature 36.6 C Pulse Rate 87 76 Respiratory Rate 18 18 Blood Pressure 120/50 L Pulse Oximetry 100 93 97 03/24/20 20:38 03/24/20 22:00 03/24/20 23:35 Temperature 36.1 C L Pulse Rate 78 80 Respiratory Rate 16 Blood Pressure 127/61 Pulse Oximetry 93 97 03/24/20 23:50 03/25/20 02:00 03/25/20 04:00 Temperature 36.7 C Pulse Rate 76 78 66 Respiratory Rate 16 16 Blood Pressure 104/45 L Pulse Oximetry 97 97 03/25/20 05:45 Temperature Pulse Rate 78 Respiratory Rate Blood Pressure Pulse Oximetry Intake/Output Intake/Output: Intake & Output 03/22/20 03/23/20 03/24/20 03/25/20 23:59 23:59 23:59 23:59 Intake Total 1937 300 Output Total 580 800 Balance 1357 -500 Meds/Results Medications: Active Medications Generic Name Dose Route Start Last Admin Trade Name Freq PRN Reason Stop Dose Admin Acetaminophen 1,000 mg 03/24/20 12:00 03/25/20 06:18 Tylenol Tablet PO 1,000 mg Q6HR ROSELYN Administration Al Hydrox/Mg Hydrox/Simethicone 30 ml 03/24/20 11:29 Mylanta PO Q6H PRN Indigestion Apixaban 2.5 mg 03/25/20 09:00 Eliquis PO 04/28/20 21:01 Q12HR ROSELYN Bisacodyl 10 mg 03/24/20 11:29 Dulcolax Suppository RECTAL DAILY PRN Constipation Celecoxib 100 mg 03/25/20 09:00 Celebrex PO DAILY ROSELYN Famotidine 20 mg 03/24/20 21:00 03/24/20 21:24 Pepcid PO 20 mg Q12HR ROSELYN Administration Hydroxyzine HCl 50 mg 03/24/20 11:29 Atarax Tablet PO Q4H PRN Itching Vancomycin HCl 1,000 mg in 250 mls @ 250 mls/hr 03/24/20 19:00 03/25/20 06:19 Vancomycin 1,000 Mg/D5w 250 Ml IVPB 03/25/20 07:59 250 mls/hr Q12H ROSELYN Administration Cefazolin Sodium 1 gm in 50 mls @ 100 mls/hr 03/24/20 14:00 03/25/20 06:00 Ancef 1 Gm/D5w 50 Ml Pm IVPB 03/25/20 06:29 Infused Q8H ROSELYN Infusion Magnesium Hydroxide 30 ml 03/24/20 11:27 Milk Of Magnesia PO BID PRN Constipation Morphine Sulfate 2 mg 03/24/20 11:29 Morphine Sulfate Inj IV PUSH Q3H PRN Pain Rated 7-10 Naloxone HCl 0.1 mg 03/24/20 11:27 Narcan IV PUSH Q2M PRN Opiate Reversal Ondansetron HCl 4 mg 03/24/20 11:29 Zofran Inj IV PUSH Q4H PRN Nausea And Vomiting Oxycodone HCl 2.5 mg 03/24/20 13:00 03/25/20 05:29 Roxicodone Ir Tablet PO 2.5 mg Q4HR ROSELYN Administration Oxycodone HCl 2.5 mg 03/24/20 11:29 Roxicodone Ir Tablet PO Q4H PRN Pain Rated 4-6 Polyethylene Glycol 17 gm 03/25/20 09:00 Miralax
--- NOTE | 2020-03-25 09:17 | PM.PNCARD ---
Progress Note: A&P Assessment and Plan (1) NSVT (nonsustained ventricular tachycardia): Code(s): I47.2 - Ventricular tachycardia Status: Acute Assessment and Plan: reported NSVT postoperatively in the setting of low magnesium. Magnesium has been supplemented. On telemetry, patient has been in sinus rhythm with PVCs. No sustained ventricular arrhythmias. She is currently stable from cardiac standpoint. Echocardiogram is pending. If echocardiogram is unremarkable, then no further cardiac testing is anticipated while patient is in the hospital. She can be seen in the outpatient cardiology clinic for further evaluation as necessary. (2) Osteoarthritis of left hip: Qualifiers: Osteoarthritis type: unspecified Qualified Code(s): M16.12 - Unilateral primary osteoarthritis, left hip Code(s): M16.12 - Unilateral primary osteoarthritis, left hip Status: Acute Assessment and Plan: Management as per Orthopedic surgery. Subjective Date/time seen: 03/25/20 09:17 Date of service: 03/25/2020 chief complaint: Joint pain interval history- Patient is status post left total hip arthroplasty, postoperatively patient reportedly had nonsustained ventricular tachycardia. On telemetry, she is in sinus rhythm with PVCs without sustained arrhythmias. Her magnesium was low, which has been supplemented and is normal now. Patient denies chest pain, shortness of breath, palpitation, dizziness or syncope. Review of Systems Constitutional: Constitutional: Denies chills, Denies fatigue, Denies fever(s) and Denies headache(s) Eyes: Eyes: Reports as per HPI, Denies change in vision, Denies loss of vision and Denies eye pain ENT: Reports as per HPI, Reports Normal hearing present, Denies headache(s), Denies lip swelling, Denies epistaxis and Denies sore throat Cardiovascular: Cardiovascular: Reports as per HPI, Denies chest pain, Denies syncope, Denies irregular heart rhythm, Denies lightheadedness and Denies dyspnea Respiratory: Respiratory: Reports as per HPI, Denies cough, Denies dyspnea and Denies wheezing Gastrointestinal: Gastrointestinal: Reports as per HPI, Denies abdominal pain, Denies melena, Denies nausea and Denies vomiting Genitourinary: Genitourinary: Reports as per HPI Musculoskeletal: Musculoskeletal: Reports as per HPI, Denies myalgias, Reports arthralgias, Reports limited range of motion, Denies muscle cramps and Denies muscle weakness Integumentary/Breasts: Skin/Breast: Reports as per HPI, Denies pruritus and Denies rash Neurologic: Reports as per HPI, Reports Normal hearing present, Denies behavioral changes, Denies syncope, Denies headache(s) and Denies loss of vision Psychiatric: Psychiatric: Reports as per HPI, Denies anxiety, Denies behavioral changes and Denies depression Endocrine: Endocrine: Reports as per HPI, Denies fatigue, Denies polydipsia and Denies polyuria Hematologic/Lymphatic: Hematologic/Lymphatic: Reports as per HPI, Denies easy bleeding and Denies easy bruising Allergic/Immunologic: Allergic/Immunologic: Reports as per HPI, Denies lip swelling and Denies wheezing Exam Const: General: no acute distress, alert and awake HENMT: Head: normocephalic and atraumatic Ears: hearing grossly normal bilaterally and external ears normal General nose exam: Normal external nose present and no epistaxis Face and sinus: normal facial exam and no ecchymosis Mouth: Yes tongue normal and Yes moist mucous membranes Teeth and gingiva: dentition normal Eyes: Conjunctivae: conjunctivae normal Sclera: sclerae normal Pupils: Equal, round and reactive pupils present EOM: EOMs intact bilaterally Neck: Neck: normal visual inspection, supple and no JVD Thyroid: thyroid normal Carotids: normal carotid upstroke Resp: Effort & Inspection: normal respiratory effort and able to speak in complete sentences Auscultation: clear to auscultation bilaterally Cardio: Jugular venous di
--- NOTE | 2020-03-25 10:40 | PC.NURSE ---
Attempted to give pt morning meds at 0900, echo in process. Attempted again at 1040 and pt was with PT
[2020-03-25] MEDS: APIXABAN 2.5 MG TABLET PO (11:11)
[2020-03-25] MEDS: FAMOTIDINE 20 MG TABLET PO (11:11)
[2020-03-25] MEDS: SENNA/DOCUSATE SODIUM TABLET 2 TAB PO (11:11)
[2020-03-25] MEDS: polyethylene glycoL 3350 17 GM POWD.PACK PO (11:12)
[2020-03-25] MEDS: CELECOXIB 100 MG CAPSULE PO (12:21)
--- NOTE | 2020-03-25 14:42 | PM.IMPN ---
Progress Note: A&P Assessment and Plan (1) Ventricular tachycardia: Code(s): I47.2 - Ventricular tachycardia Status: Acute Assessment and Plan: Several beats of NSVT were reported intra-operatively. There are no telemetry stips for review from this episode. She was given 100mg of lidocaine per anesthesiology. She has no prior cardiac hx. Cardiology is on board and recommendations are greatly appreciated. Potassium and magnesium were supplemented. Telemetry was reviewed and revealed sinus rhythm with PVCs with and further episodes of NSVT. Echocardiogram revealed normal LV size and wall thickness, normal LV systolic and diastolic function, ejection fraction more than 70%, global longitudinal strain-26%, normal valvular structure, trace MR, normal pericardium, and no significant pericardial effusion. She was cleared for discharge from a cardiology standpoint pending echocardiogram as no further testing is indicated from a cardiology standpoint while in the hospital. She was advised to follow-up with her PCP and cardiology outpatient in the further as necessary. (2) Status post total hip replacement, left: Code(s): Z96.642 - Presence of left artificial hip joint Status: Acute Assessment and Plan: The patient is s/p left total hip arthroplasty with a direct anterior approach by Dr. Poole due to severe, disabling, lifestyle-limiting pain. She tolerated the procedure well and her pain is well-controlled. She did have several runs of NSVT nikhil-operatively as above. Post-op care including DVT prophylaxis, wound/wound vac care, PT/OT and weight bearing, and pain management per orthopedic surgery. Continue to monitor. (3) Hypomagnesemia: Code(s): E83.42 - Hypomagnesemia Status: Acute Assessment and Plan: Magnesium was low at 1.5mg/dL. She will be given 3g IV magnesium sulfate. She does report that she takes an [id number] magnesium supplement at home. Magnesium is sufficient today at 2.8. (4) Anxiety: Code(s): F41.9 - Anxiety disorder, unspecified Status: Acute Assessment and Plan: Stable. Continue lexapro. (5) Anemia: Qualifiers: Anemia type: unspecified type Qualified Code(s): D64.9 - Anemia, unspecified Code(s): D64.9 - Anemia, unspecified Status: Acute Assessment and Plan: Hb was 12.8 and Hct 38.7 03/07/20 on pre-op lab evaluation. Hb is stable at 10.3 and Hct 30.8 today. This is likely due to acute blood loss from her surgery. EBL was 200cc. Continue to monitor. (6) Elevated random blood glucose level: Code(s): R73.09 - Other abnormal glucose Status: Acute Assessment and Plan: Random glucose was 163. Hemoglobin A1C was 5.8 03/07/20. Fasting glucose was 106. Encourage diet and lifestyle interventions. (7) Hyperlipidemia: Qualifiers: Hyperlipidemia type: unspecified Qualified Code(s): E78.5 - Hyperlipidemia, unspecified Code(s): E78.5 - Hyperlipidemia, unspecified Status: Acute Assessment and Plan: She reports a hx of hyperlipidemia and previously on a cholesterol medication. Triglycerides 57, total cholesterol 181, LDL 94, and HDL 50. Recommend follow-up with PCP to determine whether or not to initiate statin therapy. (8) DVT prophylaxis: Code(s): Z29.9 - Encounter for prophylactic measures, unspecified Status: Acute Assessment and Plan: Eliquis and SCDs per ortho. Subjective Date/time seen: 03/25/20 14:42 Interval history: Mrs. Mittal is a 70 y.o. female who is seen in follow-up for NSVT s/p left total hip arthroplasty via direct anterior approach by Dr. Poole 03/24/30. She is POD#1 and she is doing very well. The kaplan was removed and she voided without difficulty. Her pain is well-controlled and she currently rates her pain at 1-2/10. She is tolerating PO intake well and reported only mild nausea earlier today.
--- NOTE | 2020-03-25 17:36 | DS_ITS ---
DATE OF DISCHARGE: 03/25/2020 DIAGNOSIS: Degenerative joint disease, left hip. The patient is a 70-year-old female, patient of Dr. Poole, who underwent a left anterior total hip arthroplasty on March 24. During surgery, she had 2 runs of ventricular tachycardia. Otherwise, she was stable throughout. She had a dose of lidocaine given when these happen, she has not had any subsequent ventricular tachycardias. Postoperatively, she has been on monitored bed. Postoperatively, she has been afebrile, vital signs have been stable. Otherwise, the pain is well controlled. She is on scheduled Tylenol, on 2.5 oxycodone. She is on Eliquis for 6 weeks for DVT prophylaxis. Cardiology has seen the patient immediately postop, she had some changes on her EKG. Postop relative to preop, they have ordered an echocardiogram to be done on March 25 for additional evaluation. Postop day 1, hemoglobin was 10.3, platelets of 233. Chem panel is all within normal limits. Magnesium was low on postop day 1, 1.5, treated this with IV magnesium, subsequently went up to 2.8, which is on a high side. The patient is weightbearing as tolerated with a walker. I would like to continue to have her use a walker for the 1st month. She had a large cyst in the acetabulum that was packed with bone and will allow this consolidate over the 1st month. The patient was advised to keep the leg elevated at home to prevent swelling. When she is cleared and stable with cardiology, will discharge to home hopefully on March 25. If cardiology feels she needs to stay additional night for monitoring, then we will hold on the discharge until March 26. D I MT: Kim
== END 2020-03-25 16:39 | disposition home or self-care (01) ==
LOC: ANHSURGERY 07:47 → ANHIMU 13:11
PROVIDERS: Nurse Practitioner Adult Health; Physician Assistant Surgical; PCP Internal Medicine; Visit Provider Orthopaedic Surgery
PROC: (CPT 27130; principal; 2020-03-24 07:30)
DX: M16.12 Unilateral primary osteoarthritis, left hip (principal); M85.48 Solitary bone cyst, other site; D64.9 Anemia, unspecified; I47.2 Ventricular tachycardia; E83.42 Hypomagnesemia; R73.09 Other abnormal glucose; E78.5 Hyperlipidemia, unspecified; F41.9 Anxiety disorder, unspecified; Z86.718 Personal history of other venous thrombosis and embolism; Z85.42 Personal history of malignant neoplasm of other parts of uterus
CPT/HCPCS: 27130; 36415; 73501; 80048; 80061; 83735; 85014; 85018; 85025; 86850; 86900; 86901; 93005; 93306; 97110; 97116; 97161; 97165; 97530; A9270; C1776; J0131; J0171; J0330; J0690; J1100; J1885; J2270; J2405; J2704; J2795; J3010; J3370; J3475; J7030; J7120

== ENCOUNTER 2021-01-01 08:23 | Outpatient (CLI) | payer MEDICARE, SELFPAY ==
[2021-01-01 08:40] LABS: Basophils Absolute Auto 0.04 K/mm3 (0.00-0.10); Basophils Percent Auto 0.7 % (0.0-1.0); Eosinophils Absolute Auto 0.15 K/mm3 (0.02-0.50); Eosinophils Percent Auto 2.6 % (1.0-6.0); Hematocrit 37.6 % (35.0-42.0); Hemoglobin 12.4 g/dL (11.7-13.8); Immature Granulocyte Absolute 0.01 K/mm3 (0.00-0.00); Immature Granulocyte Percent A 0.2 % (0.0-0.0); Lymphocytes Absolute Auto 1.79 K/mm3 (1.10-4.50); Lymphocytes Percent Auto 31.5 % (18.0-42.0); Mean Corpuscular Hemoglobin 30.9 pg (27.0-31.0); Mean Corpuscular Volume 93.8 fL (78.0-102.0); Mean Platelet Volume 9.7 fl (9.2-11.8); Monocytes Absolute Auto 0.37 K/mm3 (0.10-0.90); Monocytes Percent Auto 6.5 % (2.0-11.0); Neutrophils Absolute Auto 3.3 K/mm3 (1.7-7.2); Neutrophils Percent Auto 58.5 % (50.0-70.0); Platelet Count Result 239 K/mm3 (150-420); Red Blood Count 4.01 M/mm3 (4.20-5.40); Red Cell Distribution Width 12.6 % (11.6-14.4); White Blood Count 5.7 K/mm3 (4.8-10.8)
[2021-01-01 08:41] LABS: Add Urine Microscopic? YES; Appearance Urine Clear (Clear); Bilirubin Urine Negative (Negative); Blood Urine 2+ (Negative); Color Urine Yellow (Yellow); Glucose Urine UA Negative (Negative); Ketones Urine Negative (Negative); Leukocyte Esterase Ur 1+ (Negative); Nitrate Urine Negative (Negative); Protein Urine Negative (Negative); Urobilinogen Urine 0.2 mg/dL (0.2-1.0); pH Urine 6.5 (5.0-8.0)
[2021-01-01 08:49] LABS: Bacteria Urine 2+ /hpf; Squamous Epithelial Cell Urine Few /hpf (Few)
[2021-01-01 08:50] LABS: Hemoglobin A1C 5.4 % (<5.7)
[2021-01-01 09:37] LABS: Alanine Aminotransferase 19 U/L (14-59); Albumin Level 3.7 g/dL (3.4-5.0); Alkaline Phosphatase 91 U/L (46-116); Anion Gap 5 mmol/L (8-16); Aspartate Amino Transferase 12 U/L (15-37); Bilirubin,Total 0.5 mg/dL (0.00-1.00); Blood Urea Nitrogen 14 mg/dL (7-18); Calcium 8.8 mg/dL (8.5-10.1); Carbon Dioxide 30 mmol/L (21-32); Chloride 104 mmol/L (98-108); Cholesterol 247 mg/dL (0-200); Creatine Kinase 84 U/L (26-192); Estimated Glomerular Filt Rate 55; Ferritin 62 ng/mL (8-252); Free T4 Free Thyroxine 1.06 ng/dL (0.76-1.46); Glucose 88 mg/dL (70-99); HDL Direct 56 mg/dL (40-60); Iron 105 ug/dL (50-170); LDL Cholesterol Calculated 168 mg/dL (<130); Magnesium 1.9 mg/dL (1.8-2.4); Osmolality Calculated 287 mOsm/kg (285-295); Percent Iron Saturation 34 % (12-57); Potassium 3.8 mmol/L (3.5-5.1); Sodium 139 mmol/L (136-145); Thyroid Stimulating Hormone 1.57 uIU/mL (0.36-3.74); Total Protein 7.2 g/dL (6.4-8.2); Triglycerides 116 mg/dL (0-150)
== END 2021-01-01 08:24 | disposition home or self-care (01) ==
LOC: CHSLAB 08:26
PROVIDERS: PCP Internal Medicine; Visit Provider Internal Medicine
DX: M81.0 Age-related osteoporosis without current pathological fracture (principal); E78.2 Mixed hyperlipidemia; D64.9 Anemia, unspecified; R73.01 Impaired fasting glucose
CPT/HCPCS: 36415; 80053; 80061; 81001; 82550; 82728; 83036; 83540; 83550; 83735; 84439; 84443; 85025

== ENCOUNTER 2021-02-18 09:25 | Outpatient (CLI) | payer MEDICARE, OTHER, SELFPAY ==
--- NOTE | ~2021-02-18 | MM_ITS ---
EXAMINATION: MM screening [facility] BI w lionel HISTORY: Screening mammogram TECHNIQUE: Craniocaudal and mediolateral oblique 3-D tomosynthesis images were obtained and synthetic 2-D images were generated. CAD analysis was submitted and interpreted. COMPARISON: 01/20/2018, 12/09/2016 BREAST PARENCHYMAL COMPOSITION: The breasts are almost entirely fatty. FINDINGS: There is no evidence of suspicious mass, calcification, or architectural distortion to sugg est malignancy in either breast. There has been no suspicious interval change. IMPRESSION: 1. No mammographic evidence of malignancy. 2. Recommend routine screening mammography in one year. BI-RADS Category 1: Negative Reviewed, dictated and finalized at location A.
--- NOTE | ~2021-02-18 | DEXA_ITS ---
Bone Density Report Name: Deisy Mittal Age: 70 Sex: Female Ethnicity: White Date of : 1950 Indication: postmenopausal; screening for osteoporosis; height loss; hysterectomy; Referring Provider: Veronica Wang Study: Bone densitometry was performed. Exam Date: February 18, 2021 Accession number: [id number] Bone Density: Region BMD T-score Z-score Classification AP Spine(L1-L4) 0.916 -1.2 0.9 Osteopenia Femoral Neck (Right) 0.643 -1.9 -0.1 Osteopenia Total Hip (Right) 0.763 -1.5 0.0 Osteopenia World Health Organization criteria for BMD impression classify patients as: Normal (T-score at or above -1.0), Osteopenia (T-score between -1.0 and -2.5), or Osteoporosis (T-score at or below -2.5). 10-year Fracture Risk(1): Major Osteoporotic Fracture 11% Hip Fracture 1.9% Reported Risk Factors: [place] (), Neck BMD=0.643, BMI=25.4 (1) FRAX(R) Version 3.08. Fracture probability calculated for an untreated patient. Fracture probability may be lower if the patient has received treatment. Clinical Information Provided by Patient: Has used the following medications: Vitamin D, Calcium Has the following medical conditions: Hysterectomy Patient maximum height was 61 Menopause Age: 31 No regular weight bearing exercise Does not regularly consume dairy products Drinks caffeinated beverages Onset of menses at age 14 Number of children 2 Impression: The patient has low bone mass, based on the Right Femoral Neck T-score. The patient has an estimated ten-year risk of hip fracture of 1.9% and an estimated ten-year risk of major fracture of 11%, based on the WHO FRAX algorithm. Discussion: BONE DENSITY IS LOW AT ONE OR MORE SKELETAL SITES. This patient's lowest T-score is low at one or more skeletal sites. It meets the World Health Organization's (WHO) criteria for ?low bone mass? (T-score between -1.0 and -2.5). The patient's 10-year risk of fracture as calculated by FRAX is less than the threshold where pharmacological therapy is recommended by the National Osteoporosis Foundation (NOF). However, all treatment decisions require clinical judgment and consideration of individual patient factors, including patient preferences, comorbidities, previous drug use, risk factors not captured in the FRAX model (e.g., frailty, falls, vitamin D deficiency, increased bone turnover, interval significant decline in bone density) and possible under or overestimation of fracture risk by FRAX. The patient should follow a healthful lifestyle (good nutrition with adequate calcium and vitamin D, and appropriate weight-bearing exercise). Follow-Up: Consider repeating this study in 2 to 3 years to reassess this patient's status, or sooner if there is some new clinical indication. Reported by: Dr. Jordy Herman on 02/18/2021 9:55:00 AM.
== END 2021-02-18 09:26 | disposition home or self-care (01) ==
LOC: CHSIMG 09:26
PROVIDERS: PCP Internal Medicine; Visit Provider Internal Medicine
DX: M81.0 Age-related osteoporosis without current pathological fracture (principal); Z12.31 Encounter for screening mammogram for malignant neoplasm of breast
CPT/HCPCS: 77063; 77067; 77080

== ENCOUNTER 2021-09-16 08:07 | Outpatient (CLI) | payer MEDICARE, SELFPAY ==
[2021-09-16 10:04] LABS: Influenza A QL RT-PCR Negative (Negative); Influenza B QL RT-PCR Negative (Negative); SARS-CoV-2 RNA PCR Negative (Negative)
== END 2021-09-16 08:08 | disposition home or self-care (01) ==
LOC: CHSLAB 08:09
PROVIDERS: PCP Internal Medicine; Visit Provider Internal Medicine
DX: J06.9 Acute upper respiratory infection, unspecified (principal); Z20.822 Contact with and (suspected) exposure to COVID-19
CPT/HCPCS: 87502; C9803; U0003; U0005

== ENCOUNTER 2021-12-15 09:02 | Emergency (ER) | payer MEDICARE, SELFPAY ==
[2021-12-15 09:05] VITALS: BP 174/91; PULSE 84; RESP 20; O2SAT 96
--- NOTE | 2021-12-15 09:24 | ED.SKABFB ---
HPI - Skin/Abscess/Foreign Bdy General Chief complaint: Skin/Abscess/Foreign Body Stated complaint: FACE SWOLLEN Time Seen by Provider: 12/15/21 09:15 Source: patient Mode of arrival: ambulatory Limitations: no limitations History of Present Illness HPI narrative: Pt presents with swelling and tenderness to left upper lip and face. Pt first noticed last night and took some left over amoxicillin. Pt states she awoke today with more swelling and decided to be seen. Location: face Severity: mild Quality: dull Pain Consistency: constant Relieving factors: none Exacerbating factors: none Associated symptoms: fever (no fever) Treatments prior to arrival: antibiotic Related Data Home Medications Medication Instructions Recorded Confirmed escitalopram oxalate [Lexapro] 10 mg PO DAILY 03/07/20 03/24/20 Allergies Allergy/AdvReac Type Severity Reaction Status Date / Time No Known Allergies Allergy Verified 03/24/20 07:00 Review of Systems Review of Systems: All systems reviewed & are unremarkable except as noted in HPI and below ENT: Reports system reviewed and no additional complaints, except as documented PMFSH Past Medical History Medical History (Updated 12/15/21 @ 09:34 by Fabiana Galaviz III, DO) Anxiety Cataract Chronic pain syndrome DVT (deep venous thrombosis) 2010 right leg after a back surgery Uterine cancer Surgical History Surgical History (Updated 03/24/20 @ 16:49 by Cheyenne Garcia, [place]) H/O: hysterectomy 1989 History of salpingo-oophorectomy 1993 Previous back surgery X2 Family History Family History (Updated 03/24/20 @ 16:32 by Cheyenne Garcia, [place]) Father Acute myocardial infarction, Onset Age: 47 Lung cancer Sibling Coronary artery disease Sibling Coronary artery disease Cerebrovascular accident Social History Social History Social History: Mrs. Mittal reports that she lives at home alone. Her 4 years and she has a new significant other. She also has two sons. She recently retired from [employer] where she worked in the [employer] department. She wishes to be a full code. She has designated her son Omer Mittal as her surrogate decision maker. Smoking status: Never smoker Alcohol intake: current Drinks per week: 1 Alcohol use details: She reports 1 glass of wine every 1-2 months. Substance use: never Gender identity (if verbalized by the patient): Female Spiritual care concerns: Yes Exam Const: General: cooperative and healthy appearing Nutritional Appearance: average body habitus Orientation/consciousness: oriented to person, oriented to place and oriented to time Limitations: no limitations HENMT: Face and sinus: edema and other (swelling noted to left side of face with greates tenderness upper ) Mouth: Yes Normal oral and palatal mucosa present and Yes lip normal (swelling but no abscess noted) Teeth and gingiva: gingiva abnormal (no palpable absess in gums) Throat: posterior oropharynx normal Neck: Neck: normal visual inspection, full ROM and no lymphadenopathy Resp: Effort & Inspection: normal respiratory effort and able to speak in complete sentences Cardio: Jugular venous distension: no JVD Rate: regular rate Rhythm: regular rhythm Skin: Lesions: no lesions Neuro: General: patient oriented x3 and gait normal Psych: Appearance: grossly normal and well kempt Mental Status: mental status grossly normal Speech and movement: Normal speech and movement present Affect: normal affect Attitude: cooperative Thought process: Normal thought process present Thought content: Yes Normal thought content present Discharge Plan Discharge Clinical Impression: Cellulitis Instructions: Cellulitis (ED) Prescriptions: No Action escitalopram oxalate [Lexapro] 10 mg Tablet 10 mg PO DAILY RF: 0 celecoxib [Celebrex] 200 mg Capsule
[2021-12-15 09:59] VITALS: BP 174/91; PULSE 84; RESP 20; TEMP 36.6; O2SAT 97
== END 2021-12-15 10:00 | disposition home or self-care (01) ==
PROVIDERS: Emergency Provider Emergency Medicine; PCP Internal Medicine
DX: L03.90 Cellulitis, unspecified (principal)
CPT/HCPCS: 99281

== ENCOUNTER 2022-02-23 07:48 | Outpatient (CLI) | payer MEDICARE, SELFPAY ==
--- NOTE | ~2022-02-23 | MM_ITS ---
EXAMINATION: MM screening [facility] BI w lionel HISTORY: Screening mammogram TECHNIQUE: Craniocaudal and mediolateral oblique 3-D tomosynthesis images were obtained and synthetic 2-D images were generated. CAD analysis was submitted and interpreted. COMPARISON: 02/18/2021, 01/20/2018, 12/09/2006 bilateral screening mammogram examinations BREAST PARENCHYMAL COMPOSITION: The breasts are almost entirely fatty. FINDINGS: There is no evidence of suspicious mass, calcification, or architectural distortion to sugg est malignancy in either breast. There has been no suspicious interval change. IMPRESSION: 1. No mammographic evidence of malignancy. 2. Recommend routine screening mammography in one year. BI-RADS Category 1: Negative Reviewed, dictated and finalized at location A.
== END 2022-02-23 07:49 | disposition home or self-care (01) ==
LOC: CHSIMG 07:53
PROVIDERS: PCP Internal Medicine; Visit Provider Internal Medicine
DX: Z12.31 Encounter for screening mammogram for malignant neoplasm of breast (principal)
CPT/HCPCS: 77063; 77067

== ENCOUNTER 2022-09-08 10:00 | Outpatient (RCR) | payer MEDICARE, SELFPAY | END 2022-09-08 23:59 | disposition home or self-care (01) | LOC: CHSSENLIFE 10:00 | PROVIDERS: PCP Internal Medicine; Visit Provider Psychiatry & Neurology Psychiatry | DX: F33.1 Major depressive disorder, recurrent, moderate (principal) | CPT/HCPCS: 90792; 90837; 90853; 99213; G0463 ==

== ENCOUNTER 2022-12-08 10:00 | Outpatient (RCR) | payer MEDICARE, SELFPAY | END 2022-12-08 23:59 | disposition home or self-care (01) | LOC: CHSSENLIFE 10:00 | PROVIDERS: PCP Internal Medicine; Visit Provider Psychiatry & Neurology Psychiatry | DX: F41.9 Anxiety disorder, unspecified (principal) | CPT/HCPCS: 90853; 99213; G0463 ==

== ENCOUNTER 2023-02-08 12:39 | Outpatient (CLI) | payer MEDICARE, SELFPAY ==
--- NOTE | ~2023-02-08 | MM_ITS ---
EXAMINATION: MM screening [facility] BI w lionel HISTORY: Screening mammogram TECHNIQUE: Craniocaudal and mediolateral oblique 3-D tomosynthesis images were obtained and synthetic 2-D images were generated. CAD analysis was submitted and interpreted. COMPARISON: 02/23/2022, 02/18/2021 BREAST PARENCHYMAL COMPOSITION:There are scattered areas of fibroglandular density. FINDINGS: No suspicious mass, calcification, or architectural distortion are identified in either parris ast to suggest malignancy. There has been no suspicious interval change. IMPRESSION: No mammographic evidence of malignancy. Recommend routine screening mammography in one year. BI-RADS Category 1: Negative Reviewed, dictated and finalized at location .
--- NOTE | ~2023-02-08 | DEXA_ITS ---
Bone Density Report Name: NARESH DAVIS Age: 72 Sex: Female Ethnicity: White Date of : 1950 Indication: postmenopausal; screening for osteoporosis; height loss; prior fracture; hysterectomy; Referring Provider: Veronica Wang Study: Bone densitometry was performed. Exam Date: February 08, 2023 Accession number: [id number] Bone Density: Region BMD T-score Z-score Classification AP Spine(L2, L3, L4) 1.021 -0.5 1.8 Normal Femoral Neck (Right) 0.627 -2.0 -0.1 Osteopenia Total Hip (Right) 0.742 -1.6 0.0 Osteopenia World Health Organization criteria for BMD impression classify patients as: Normal (T-score at or above -1.0), Osteopenia (T-score between -1.0 and -2.5), or Osteoporosis (T-score at or below -2.5). 10-year Fracture Risk: FRAX not reported because: Prior hip or vertebral fracture Clinical Information Provided by Patient: Have had a previous hip or vertebral fracture Has had a low trauma fracture Has used the following medications: Vitamin D, Calcium, multivitiman Has the following medical conditions: Hysterectomy Patient maximum height was 61 Menopause Age: 31 No regular weight bearing exercise Does not regularly consume dairy products Drinks caffeinated beverages Onset of menses at age 14 Number of children 2 Impression: The patient has low bone mass, based on the Right Femoral Neck T-score. The patient has risk factors, including: previous fracture. Discussion: INCREASED RISK OF FRACTURE DUE TO HISTORY OF FRACTURE. The patient's previous fracture puts the patient at high risk of a future fracture. In untreated patients, the risk of osteoporotic fracture increases approximately two-fold for each 1.0 SD decrease in T-score. Low bone density is not the only risk factor for fracture; also consider factors such as patient's age, frailty or poor health, risk of falling, risk of injury, previous osteoporotic fracture, family history of osteoporosis, cigarette smoking, low body weight, etc. Not everyone with a low trauma fracture has osteoporosis; osteomalacia and other metabolic bone disorders should also be considered. Patients who have osteoporosis should be evaluated for specific diseases and conditions (secondary causes) that may cause or contribute to bone loss and fracture risk. National Osteoporosis Foundation (NOF) recommends pharmacologic intervention for patients with a prior hip or vertebral fracture regardless of BMD T-score. The patient should follow a healthful lifestyle (good nutrition with adequate calcium and vitamin D, and appropriate weight-bearing exercise). Follow-Up: Consider a repeat BMD and Vertebral Fracture Assessment (VFA) exam in 2 years or sooner if medically necessary, to reassess this patient's status. Reported by: Dr. Artemio Gamez on 02/08/2023 1:17:00 PM.
== END 2023-02-08 12:40 | disposition home or self-care (01) ==
LOC: CHSIMG 12:42
PROVIDERS: PCP Internal Medicine; Visit Provider Internal Medicine
DX: Z12.31 Encounter for screening mammogram for malignant neoplasm of breast (principal); Z78.0 Asymptomatic menopausal state; M85.89 Other specified disorders of bone density and structure, multiple sites
CPT/HCPCS: 77063; 77067; 77080

== ENCOUNTER 2023-03-10 12:00 | Outpatient (RCR) | payer MEDICARE, SELFPAY | END 2023-03-10 12:10 | disposition home or self-care (01) | LOC: CHSSENLIFE 12:00 | PROVIDERS: PCP Internal Medicine; Visit Provider Psychiatry & Neurology Psychiatry | DX: F33.1 Major depressive disorder, recurrent, moderate (principal) | CPT/HCPCS: 90853; 99213; G0463 ==

== ENCOUNTER 2023-08-04 07:32 | Outpatient (CLI) | payer MEDICARE, SELFPAY ==
[2023-08-04 07:49] LABS: Basophils Absolute Auto 0.03 K/mm3 (0.00-0.10); Basophils Percent Auto 0.6 % (0.0-1.0); Eosinophils Absolute Auto 0.09 K/mm3 (0.02-0.50); Eosinophils Percent Auto 1.9 % (1.0-6.0); Hematocrit 38.2 % (35.0-42.0); Hemoglobin 12.9 g/dL (11.7-13.8); Immature Granulocyte Absolute 0.01 K/mm3 (0.00-0.00); Immature Granulocyte Percent A 0.2 % (0.0-0.0); Lymphocytes Absolute Auto 1.32 K/mm3 (1.10-4.50); Lymphocytes Percent Auto 27.3 % (18.0-42.0); Mean Corpuscular HGB Conc 33.8 g/dL (32.0-36.0); Mean Corpuscular Hemoglobin 31.7 pg (27.0-31.0); Mean Corpuscular Volume 93.9 fL (78.0-102.0); Mean Platelet Volume 9.3 fl (9.2-11.8); Monocytes Absolute Auto 0.39 K/mm3 (0.10-0.90); Monocytes Percent Auto 8.1 % (2.0-11.0); Neutrophils Percent Auto 61.9 % (50.0-70.0); Platelet Count Result 238 K/mm3 (150-420); Red Blood Count 4.07 M/mm3 (4.20-5.40); Red Cell Distribution Width 12.6 % (11.6-14.4); White Blood Count 4.8 K/mm3 (4.8-10.8)
[2023-08-04 07:57] LABS: Appearance Urine Clear (Clear); Bilirubin Urine Negative (Negative); Blood Urine 1+ (Negative); Color Urine Light Yellow (Yellow); Glucose Urine UA Negative (Negative); Ketones Urine Negative (Negative); Leukocyte Esterase Ur 1+ (Negative); Nitrate Urine Negative (Negative); Protein Urine Negative (Negative); Urobilinogen Urine 0.2 mg/dL (0.2-1.0)
[2023-08-04 08:05] LABS: Add Urine Microscopic? YES
[2023-08-04 08:06] LABS: Bacteria Urine 1+ /hpf; Squamous Epithelial Cell Urine Few /hpf (Few)
[2023-08-04 08:43] LABS: Alanine Aminotransferase 24 U/L (14-59); Albumin Level 3.7 g/dL (3.4-5.0); Alkaline Phosphatase 89 U/L (46-116); Anion Gap 9 mmol/L (8-16); Aspartate Amino Transferase 16 U/L (15-37); Bilirubin,Total 0.4 mg/dL (0.00-1.00); Blood Urea Nitrogen 12 mg/dL (7-18); Calcium 9.4 mg/dL (8.5-10.1); Carbon Dioxide 30 mmol/L (21-32); Chloride 105 mmol/L (98-108); Cholesterol 171 mg/dL (0-200); Estimated Glomerular Filt Rate 59; Free T3 2.55 pg/mL (2.18-3.98); Free T4 Free Thyroxine 0.91 ng/dL (0.76-1.46); Glucose 89 mg/dL (70-99); HDL Direct 66 mg/dL (40-60); LDL Cholesterol Calculated 91 mg/dL (<130); Osmolality Calculated 296 mOsm/kg (285-295); Sodium 144 mmol/L (136-145); Thyroid Stimulating Hormone 1.74 uIU/mL (0.36-3.74); Total Protein 6.9 g/dL (6.4-8.2); Triglycerides 69 mg/dL (0-150)
[2023-08-04 08:59] LABS: Erythrocyte Sedimentation Rate 36 mm/hr (0-20)
[2023-08-07 14:20] LABS: RPR Screen Non-Reactive (Non-Reactive)
== END 2023-08-04 07:33 | disposition home or self-care (01) ==
LOC: CHSLAB 07:34
PROVIDERS: PCP Internal Medicine; Visit Provider Internal Medicine
DX: F09 Unspecified mental disorder due to known physiological condition (principal); E78.2 Mixed hyperlipidemia; F03.911 Unspecified dementia, unspecified severity, with agitation
CPT/HCPCS: 36415; 80053; 80061; 81001; 84439; 84443; 84481; 85025; 85652; 86038; 86592

== ENCOUNTER 2023-08-15 10:38 | Outpatient (CLI) | payer MEDICARE, SELFPAY ==
[2023-08-15 11:44] LABS: Vitamin B12 394 pg/mL (193-986)
== END 2023-08-15 10:39 | disposition home or self-care (01) ==
PROVIDERS: PCP Internal Medicine; Visit Provider Internal Medicine
DX: G31.84 Mild cognitive impairment of uncertain or unknown etiology (principal)
CPT/HCPCS: 36415; 82607

== ENCOUNTER 2023-08-24 07:24 | Outpatient (CLI) | payer MEDICARE, SELFPAY ==
--- NOTE | ~2023-08-24 | US_ITS ---
Renal-Bladder ultrasound Clinical History: Microscopic hematuria Technique: Real-time sonographic imaging of the kidneys and urinary bladder was performed. Findings: The right kidney measures 0.7 cm in length and the left kidney measures 8.9 cm. There is no hydronephrosis or renal calculus identified. Renal cortical echogenicity is within normal limits. No renal mass lesion is identified. The urinary bladder is moderately distended at the time of this exam. No intraluminal echoes are iden tified. No abnormal wall thickening is seen. Impression: Unremarkable ultrasound of the kidneys and urinary bladder. Reviewed, dictated and finalized at location M. ERSHIP ADMINISTRATOR Impression: Unremarkable ultrasound of the kidneys and urinary bladder.
== END 2023-08-24 07:25 | disposition home or self-care (01) ==
LOC: CHSIMG 07:28
PROVIDERS: PCP Internal Medicine; Visit Provider Internal Medicine
DX: R31.29 Other microscopic hematuria (principal)
CPT/HCPCS: 76770

== ENCOUNTER 2023-09-02 08:06 | Outpatient (CLI) | payer MEDICARE, SELFPAY ==
[2023-09-02 08:19] LABS: Appearance Urine Clear (Clear); Bilirubin Urine Negative (Negative); Blood Urine Trace-Intact (Negative); Color Urine Light Yellow (Yellow); Glucose Urine UA Negative (Negative); Ketones Urine Negative (Negative); Leukocyte Esterase Ur Negative (Negative); Nitrate Urine Negative (Negative); Protein Urine Negative (Negative); Specific Grav Ur >= 1.030 (1.010-1.020); Urobilinogen Urine 0.2 mg/dL (0.2-1.0)
[2023-09-02 08:24] LABS: Add Urine Microscopic? YES; Bacteria Urine Trace /hpf; Mucus Urine Few /lpf; RBC Urine 0-2 /hpf (0-2); Squamous Epithelial Cell Urine Rare /hpf (Few); WBC Urine None seen /hpf (0-3)
== END 2023-09-02 08:07 | disposition home or self-care (01) ==
LOC: CHSLAB 08:08
PROVIDERS: PCP Internal Medicine; Visit Provider Internal Medicine
DX: R30.0 Dysuria (principal)
CPT/HCPCS: 81001; 87086

== ENCOUNTER 2023-11-19 17:47 | Emergency (ER) | payer MEDICARE, SELFPAY ==
[2023-11-19 17:50] VITALS: O2SAT 95
[2023-11-19 17:52] VITALS: BP 155/95; PULSE 82; RESP 20; TEMP 36.2; O2SAT 97
[2023-11-19 18:40] LABS: Strep Group A RT-PCR Not Detected (Negative)
[2023-11-19 18:53] LABS: Influenza A QL RT-PCR Negative (Negative); Influenza B QL RT-PCR Positive (Negative); RSV RNA, RT-PCR Negative (Negative); SARS-CoV-2 RNA PCR Negative (Negative)
--- NOTE | 2023-11-19 19:07 | PC.NURSE ---
REPORT TO RADHA MEADOWS
[2023-11-19 19:09] VITALS: BP 157/91; PULSE 72; RESP 18; O2SAT 97
--- NOTE | 2023-11-19 19:14 | ED.URI ---
HPI - URI/Sore Throat General Chief Complaint: Upper Respiratory Infection Stated Complaint: sore throat; congestion Time Seen by Provider: 11/19/23 17:54 Source: patient Mode of arrival: ambulatory Limitations: no limitations History of Present Illness HPI Narrative: patient is a 73-year-old female with significant past medical history that presents today for URI symptoms. Patient has cough, congestion, rhinorrhea and a sore throat for the last 2 days now. She states that is been getting worse. She is taking OTC medications with no relief. She denies any sick contacts. She has had some subjective fevers. MD elicited complaint: fever, cough, sore throat, rhinorrhea and nasal congestion Onset (ago): day(s) Consistency: constant Severity: mild Description of mucous: yellow Able to tolerate fluids by mouth: Yes Exacerbating factors: nothing Relieving factors: nothing Associated symptoms: fever, rhinorrhea, nasal congestion and sore throat Treatments prior to arrival: none Related Data Home Medications Medication Instructions Recorded Confirmed atorvastatin 20 mg tablet 20 mg PO DAILY 12/15/21 12/15/21 biotin 10,000 mcg capsule 10,000 mcg PO DAILY 12/15/21 12/15/21 Allergies Allergy/AdvReac Type Severity Reaction Status Date / Time No Known Allergies Allergy Verified 06/14/22 15:02 Review of Systems Review of Systems: All systems reviewed & are unremarkable except as noted in HPI and below Constitutional: Constitutional: Reports as per HPI Eyes: Eyes: Reports no additional eye complaints ENT: Reports as per HPI Cardiovascular: Cardiovascular: Reports no additional cardiovascular complaints Respiratory: Respiratory: Reports as per HPI Gastrointestinal: Gastrointestinal: Reports no additional gastrointestinal complaints Genitourinary: Genitourinary: Reports no additional female genitourinary complaints Musculoskeletal: Musculoskeletal: Reports no additional musculoskeletal complaints Integumentary/Breasts: Skin/Breast: Reports system reviewed and no additional complaints, except as docu Neurologic: Reports system reviewed and no additional complaints, except as documented Psychiatric: Psychiatric: Reports no additional psychiatric complaints Endocrine: Endocrine: Reports no additional endocrine complaints Hematologic/Lymphatic: Hematologic/Lymphatic: Reports no additional hematologic/lymphatic complaints Allergic/Immunologic: Allergic/Immunologic: Reports no additional allergic/immunologic complaints [facility] Past Medical History Medical History (Updated 11/19/23 @ 19:19 by Caesar Penny MD) Anxiety Cataract Chronic pain syndrome DVT (deep venous thrombosis) 2011 right leg after a back surgery Uterine cancer Surgical History Surgical History H/O: hysterectomy 1989 History of salpingo-oophorectomy 1993 Previous back surgery X2 Family History Family History Father Acute myocardial infarction, Onset Age: 47 Lung cancer Sibling Coronary artery disease Sibling Coronary artery disease Cerebrovascular accident Social History Social History Social History: Mrs. Mittal reports that she lives at home alone. Her 4 years and she has a new significant other. She also has two sons. She recently retired from [employer] where she worked in the [employer] department. She wishes to be a full code. She has designated her son Omer Mittal as her surrogate decision maker. Smoking status: Never smoker Alcohol intake: current Drinks per week: 1 Alcohol use details: She reports 1 glass of wine every 1-2 months. Substance use: never Living arrangements: alone Occupation/Education: retired Gender identity (if verbalized by the patient): Female Spiritual care concerns: Yes Exam Const: Gene
[2023-11-19] MEDS: OSELTAMIVIR PHOSPHATE 75 MG CAPSULE PO (19:19)
[2023-11-19 19:28] VITALS: BP 152/72; PULSE 75; RESP 18; TEMP 36.6; O2SAT 97
== END 2023-11-19 19:28 | disposition home or self-care (01) ==
PROVIDERS: Emergency Provider Family Medicine; PCP Internal Medicine
DX: J10.1 Influenza due to other identified influenza virus with other respiratory manifestations (principal); Z20.822 Contact with and (suspected) exposure to COVID-19
CPT/HCPCS: 87637; 87651; 99283; A9270

== ENCOUNTER 2024-06-21 12:25 | Outpatient (CLI) | payer MEDICARE, SELFPAY ==
--- NOTE | ~2024-06-21 | MM_ITS ---
EXAMINATION: MM screening [facility] BI w lionel HISTORY: Screening TECHNIQUE: Craniocaudal and mediolateral oblique 3-D tomosynthesis images were obtained and synthetic 2-D images were generated. CAD analysis was submitted and interpreted. COMPARISON: Comparison to multiple prior studies sequentially, with oldest reviewed study dated 02/18. BREAST PARENCHYMAL COMPOSITION: Not Dense: The breasts are almost entirely fatty. FINDINGS: There is no evidence of suspicious mass, calcification, or architectural distortion to sugg est malignancy in either breast. There has been no suspicious interval change. IMPRESSION: 1. No mammographic evidence of malignancy. 2. Recommend routine screening mammography in one year. BI-RADS Category 1: Negative Reviewed, dictated and finalized at location B.
== END 2024-06-21 12:26 | disposition home or self-care (01) ==
LOC: CHSIMG 12:31
PROVIDERS: PCP Internal Medicine; Visit Provider Internal Medicine
DX: Z12.31 Encounter for screening mammogram for malignant neoplasm of breast (principal)
CPT/HCPCS: 77063; 77067

== ENCOUNTER 2025-02-19 11:48 | Outpatient (CLI) | payer MEDICARE, SELFPAY ==
--- NOTE | 2025-02-19 11:54 | ECHO_ITS ---
Patient Info Name: Suze Mittal Age: 74 years : 1950 Gender: Female Ht: 59 in Wt: 121 lbs BSA: 1.52 m2 HR: 70 bpm BP: 133 / 82 mmHg Heart Rhythm: Sinus Rhythm Technical Quality: Fair Exam Date: 02/19/2025 12:05 PM Patient Status: O Admit Date: 02/19/2025 Exam Type: CA echo doppler color flow Complete two-dimensional, color flow and Doppler transthoracic echocardiogram is performed. Letterpress Printing Machinist: Brittney Sanz Attending Provider: Veronica Wang MD Summary 1. Complete two-dimensional, color flow and Doppler transthoracic echocardiogram is performed. 2. Left ventricular chamber dimension is normal. 3. Left ventricular systolic function is normal, estimated at 65-70. 4. The left ventricular diastolic function is abnormal. 5. E/e' 11 is mildly elevated. 6. Left atrial chamber dimension is moderately enlarged. 7. There is mild aortic valve regurgitation. 8. There is mild tricuspid valve regurgitation. 9. No pulmonary hypertension, estimated pulmonary arterial systolic pressure is 33 mmHg. Left Ventricle E/e' 11 is mildly elevated. Left ventricular chamber dimension is normal. Left ventricular systolic function is normal, estimated at 65-70. The left ventricular diastolic function is abnormal. Right Ventricle Right ventricular chamber dimension is normal. Right ventricular systolic function is normal and with normal TAPSE 2.7 cm. Left Atria Left atrial chamber dimension is moderately enlarged. Right Atria Right atrial chamber dimension is normal. Aortic Valve The aortic valve is trileaflet. There is no aortic valve stenosis. There is mild aortic valve regurgitation. Pulmonic Valve There is no pulmonic regurgitation. Mitral Valve There is no mitral valve stenosis. There is no mitral valve regurgitation. Tricuspid Valve There is mild tricuspid valve regurgitation. No pulmonary hypertension, estimated pulmonary arterial systolic pressure is 33 mmHg. Pericardium/Pleural There is no pericardial effusion. Inferior Vena Cava Normal inferior vena cava with >50% collapse upon inspiration consistent with normal right atrial pressure, 5 mmHg. Aorta The aortic root size at the sinus of Valsalva is normal. Left Ventricular Outflow Tract Name Value Normal LVOT 2D LVOT Diameter 1.9 cm LVOT Doppler LVOT Peak Velocity 138 cm/s LVOT Peak Gradient 8 mmHg LVOT Mean Gradient 3 mmHg LVOT VTI 28 cm LVOT VTI/AV VTI Ratio 0.9 LVOT Stroke Volume 77 ml LVOT CO 5.2 l/min LVOT CI 3.4 l/min/m2 Pulmonic Valve Name Value Normal RVOT Doppler RVOT Peak Velocity 79 cm/s RVOT Peak Gradient 2 mmHg PV Doppler PV Peak Velocity 95 cm/s PV Peak Gradient 4 mmHg Mitral Valve Name Value Normal MV Diastolic Function MV E Peak Velocity 94 cm/s MV A Peak Velocity 76 cm/s MV E/A 1.2 MV Decel Time (PW) 137 ms MV Annular TDI MV E/e' (Septal) 12.6 MV E/e' (Lateral) 10.8 MV E/e' (Average) 11.7 Tricuspid Valve Name Value Normal TV Regurgitation Doppler TR Peak Velocity 264 cm/s TR Peak Gradient 28 mmHg Estimated PAP/RSVP RA Pressure 5 mmHg <=5 PA Systolic Pressure 33 mmHg <36 RV Systolic Pressure 33 mmHg <36 TV Annular TDI TV Lateral Kristine s' Velocity 13.5 cm/s >=9.5 Aorta Name Value Normal Ascending Aorta Ao Root Diameter (MM) 2.9 cm Ao Root Diam Index (MM) 1.9 cm/m2 Aortic Valve Name Value Normal AV Doppler AV Peak Velocity 155 cm/s AV Peak Gradient 10 mmHg AV Mean Gradient 5 mmHg AV VTI 31 cm AV Area (Cont Eq VTI) 2.5 cm2 >=3.0 AV Area (Cont Eq Trevin) 2.5 cm2 AV DI (Trevin) 0.89 AV Regurgitation 2D LVOT Area 2.8 cm2 Ventricles Name Value Normal LV Dimensions 2D/MM IVS Diastolic Thickness (2D) 0.8 cm 0.6-1.0 LVID Diastole (2D) 4.5 cm 3.8-5.2 LVIW Diastolic Thickness (2D) 0.7 cm 0.6-0.9 LVID Systole (2D) 2.4 cm 2.2-3.5 LVOT Diameter 1.9 cm LV Mass (2D Cubed) 103.04 g 67.00-162.00 LV Mass Index (2D Cubed) 68 g/m2 43-95 Relative Wall Thickness (2D) 0.32 <=0.42 LV Fractional Shortening/Ejection Fraction 2D/MM LV Fractional Shortening (2D) 47 % 27-45 LV EF (2D Teichholz) 78 % LV Diastolic Volume (4C MOD) 34 ml LV EF (4C MOD) 65 % LV Diastolic Volume (2C MOD) 41 ml LV EF (2C MOD) 71 % LV Diastolic Volume (BP MOD) 39 ml 46-106 LV Diastolic Volume Index (BP MOD) 26 ml/m2 29-61 LV Systolic Volume (BP MOD) 12 ml 14-42 LV Systolic Volume Index (BP MOD) 8 ml/m2 8-24 LV EF (BP MOD) 69 % 54-74 LV Diastolic Length (4C) 6.4 cm LV Systolic Length (4C) 4.9 cm LV Stroke Volume (4C MOD) 22 ml Atria Name Value Normal LA Dimensions LA Dimension (MM) 3.8 cm 2.7-3.8 LA Volume (4C A-L) 60 ml LA Volume (BP A-L) 66 ml RA Dimensions RA Systolic Major [place] Length (4C) 5.3 cm 2.2-2.8 RA Area (4C) 15.5 cm2 <=18.0 Report Signatures
== END 2025-02-19 11:49 | disposition home or self-care (01) ==
PROVIDERS: PCP Internal Medicine; Visit Provider Internal Medicine
DX: R01.1 Cardiac murmur, unspecified (principal); M81.0 Age-related osteoporosis without current pathological fracture; I08.2 Rheumatic disorders of both aortic and tricuspid valves
CPT/HCPCS: 93306

== ENCOUNTER 2025-02-26 13:50 | Outpatient (CLI) | payer MEDICARE, SELFPAY ==
--- NOTE | ~2025-02-26 | DEXA_ITS ---
Bone Density Report Name: NARESH DAVIS Age: 74 Sex: Female Ethnicity: White Date of : 1950 Indication: osteopenia; height loss; hysterectomy; Referring Provider: Veronica Wang Study: Bone densitometry was performed. Exam Date: February 26, 2025 Accession number: [id number] Bone Density: Region BMD T-score Z-score Classification AP Spine(L2, L3, L4) 1.001 -0.7 1.7 Normal Femoral Neck (Right) 0.598 -2.3 -0.2 Osteopenia Total Hip (Right) 0.742 -1.6 0.1 Osteopenia World Health Organization criteria for BMD impression classify patients as: Normal (T-score at or above -1.0), Osteopenia (T-score between -1.0 and -2.5), or Osteoporosis (T-score at or below -2.5). 10-year Fracture Risk(1): Major Osteoporotic Fracture 15% Hip Fracture 3.9% Reported Risk Factors: [place] (), Neck BMD=0.598, BMI=25.2 (1) FRAX(R) Version 3.08. Fracture probability calculated for an untreated patient. Fracture probability may be lower if the patient has received treatment. Previous Exams: Region Exam Age BMD T-score BMD Change BMD Change Date g/cm2 vs Baseline vs Previous AP Spine (L2-L4) 02/26/2025 74 1.001 -0.7 0.050 (5.2%)* -0.020 (-2.0%) 02/08/2023 72 1.021 -0.5 0.070 (7.4%)# 0.070 (7.4%)# 02/18/2021 70 0.951 -1.2 Total Hip(Right) 02/26/2025 74 0.742 -1.6 -0.022 (-2.8%) 0.000 (0.0%)# 02/08/2023 72 0.742 -1.6 -0.022 (-2.8%) -0.022 (-2.8%) 02/18/2021 70 0.763 -1.5 *Denotes significance at 95% confidence level, LSC for AP Spine = 0.022 g/cm2, LSC for Total Hip = 0.027 g/cm2 # Denotes dissimilar scan types or analysis methods Clinical Information Provided by Patient: Has used the following medications: Vitamin D Has the following medical conditions: Hysterectomy Patient maximum height was 61 Menopause Age: 31 No regular weight bearing exercise Drinks caffeinated beverages Onset of menses at age 13 Number of children 2 Impression: The patient has low bone mass, based on the Right Femoral Neck T-score. The patient has an estimated ten-year risk of hip fracture of 3.9% and an estimated ten-year risk of major fracture of 15%, based on the WHO FRAX algorithm. No significant bone loss was observed. Discussion: BONE DENSITY IS LOW AT ONE OR MORE SKELETAL SITES. THE PATIENT'S BMD AND CLINICAL RISK FACTORS CONTRIBUTE TO THIS PATIENT'S INCREASED RISK OF FRACTURE. This patient's lowest T-score is low at one or more skeletal sites. It meets the World Health Organization's (WHO) criteria for ?low bone mass? (T-score between -1.0 and -2.5). The patient's 10-year risk of hip fracture as calculated by FRAX exceeds the threshold where pharmacological therapy is recommended by the National Osteoporosis Foundation (NOF). However, all treatment decisions require clinical judgment and consideration of individual patient factors, including patient preferences, comorbidities, previous drug use, risk factors not captured in the FRAX model (e.g., frailty, falls, vitamin D deficiency, increased bone turnover, interval significant decline in bone density) and possible under or overestimation of fracture risk by FRAX. The patient should follow a healthful lifestyle (good nutrition with adequate calcium and vitamin D, and appropriate weight-bearing exercise). Follow-Up: Consider a repeat BMD and Vertebral Fracture Assessment (VFA) exam in 2 years or sooner if medically necessary, to reassess this patient's status. Reported by: ROCK on 02/26/2025 2:08:00 PM. Reviewed, dictated and finalized at location A.
== END 2025-02-26 13:51 | disposition home or self-care (01) ==
LOC: CHSLAB 13:52
PROVIDERS: PCP Internal Medicine; Visit Provider Internal Medicine
DX: Z78.0 Asymptomatic menopausal state (principal); M85.89 Other specified disorders of bone density and structure, multiple sites
CPT/HCPCS: 77080

== ENCOUNTER 2025-06-24 12:02 | Outpatient (CLI) | payer MEDICARE, SELFPAY ==
--- NOTE | ~2025-06-24 | MM_ITS ---
EXAMINATION: MM screening [facility] BI w lionel HISTORY: Screening TECHNIQUE: Craniocaudal and mediolateral oblique 3-D tomosynthesis images were obtained and synthetic 2-D images were generated. CAD analysis was submitted and interpreted. COMPARISON: 02/23/2022 BREAST PARENCHYMAL COMPOSITION: Not Dense: The breasts are almost entirely fatty. FINDINGS: There is no evidence of suspicious mass, calcification, or architectural distortion to suggest malignancy. There has been no suspicious interval change. IMPRESSION: 1. No mammographic evidence of malignancy. Recommend routine screening mammography in one year. BI-RADS Category 2: Benign finding(s) Reviewed, dictated and finalized at location Q. IMPRESSION: 1. No mammographic evidence of malignancy. Recommend routine screening mammogra phy in one year. BI-RADS Category 2: Benign finding(s)
--- OUTSIDE RECORDS SUMMARY | 2025-06-24 12:08 | XMS_ITS | Clinical Summary ---
Author Organization [facility] Address [address] [place] [id number] Care Team Providers Care Food Expeditor Name Role Phone Veronica Wang MD Primary Care Provider [phone] Social History Tobacco Use Types Packs/Day Years Used Date Smoking Tobacco: Never Assessed Comments Unknown Sex and Gender Information Value Date Recorded Sex Assigned at Not on file Legal Sex Female 9:52 PM NUCLEAR MEDICINE TECH Gender Identity Not on file Sexual Orientation Not on file Plan of Treatment Health Maintenance Due Date Last Done Comments Colorectal Cancer Screening Colonoscopy (10 Years) 1950 Hepatitis C 1969 DTaP, Tdap and Td Vaccines ( 1 - Tdap) 1970 Mammogram Screening 1991 Annual Medicare Wellness Visit 2016 Dexa Scan (General) 2016 COVID-19 Vaccine ( - 2024-2 6 season) 2025 07/18/2023, 12/26/2020, 12/05/2020 RSV Immunization or 60+ Years (1 - 1-dose 75+ series) 2026 Pneumococcal Vaccine: 50+ Years Completed 05/03/2017, 05/26/2015 Zoster Vaccines Completed 08/12/2018, 06/09/2018, 08/11/2012 Meningococcal B Vaccine Aged Out No l onger eligible based on patient's age to complete this topic Meningococcal Vaccine Aged Out No millie carlo eligible based on patient's age to complete this topic RSV Immunizations Under 20 Months Aged Out No longer eligible b ased on patient's age to complete this topic Insurance MEDICARE GENERIC - COMMERCIAL Care Teams Food Expeditor Relationship Specialty Start Date End Date Veronica Wang MD [address] [place] [address] PCP - General INTERNAL MEDICINE 09/28/24
== END 2025-06-24 12:03 | disposition home or self-care (01) ==
LOC: CHSIMG 12:03
PROVIDERS: PCP Internal Medicine; Visit Provider Internal Medicine
DX: Z12.31 Encounter for screening mammogram for malignant neoplasm of breast (principal)
CPT/HCPCS: 77063; 77067

== ENCOUNTER 2025-07-01 08:39 | Outpatient (CLI) | payer MEDICARE, SELFPAY ==
[2025-07-01 09:17] LABS: Add Urine Microscopic? NO; Appearance Urine Clear (Clear); Glucose Urine UA Negative (Negative); Leukocyte Esterase Ur Negative (Negative); Nitrate Urine Negative (Negative); Specific Grav Ur 1.020 (1.010-1.020)
[2025-07-01 09:19] LABS: Hematocrit 38.5 % (35.0-42.0); Hemoglobin 12.7 g/dL (11.7-13.8); Immature Granulocyte Percent A 0.2 % (0.0-0.0); Lymphocytes Absolute Auto 1.42 K/mm3 (1.10-4.50); Mean Corpuscular HGB Conc 33.0 g/dL (32-36); Mean Corpuscular Hemoglobin 31.4 pg (27.0-31.0); Mean Corpuscular Volume 95.1 fL (78.0-102.0); Nucleated Red Blood Cells Absolute Auto 0.00 K/mm3 (0.00-0.00); Nucleated Red Blood Cells Perc 0.0 % (0-0.0); Platelet Count Result 240 K/mm3 (150-420); Red Blood Count 4.05 M/mm3 (4.20-5.40); White Blood Count 5.0 K/mm3 (4.8-10.8)
[2025-07-01 09:41] LABS: Alanine Aminotransferase 29 U/L (6-35); Albumin Level 4.7 g/dL (3.5-5.1); Alkaline Phosphatase 64 U/L (38-126); Anion Gap 10 mmol/L (4-12); Aspartate Amino Transferase 39 U/L (14-36); Bilirubin,Total 0.7 mg/dL (0.2-1.3); Blood Urea Nitrogen 19 mg/dL (7-17); Calcium 9.4 mg/dL (8.4-10.2); Carbon Dioxide 29 mmol/L (22-30); Chloride 105 mmol/L (98-107); Cholesterol 188 mg/dL (0-200); Creatine Kinase 90 U/L (30-135); Estimated Glomerular Filt Rate > 60; Glucose 94 mg/dL (65-110); HDL Direct 68 mg/dL; Osmolality Calculated 300 mOsm/kg (285-295); Potassium 4.3 mmol/L (3.4-5.0); Sodium 144 mmol/L (137-145); Total Protein 9.0 g/dL (6.3-8.2); Triglycerides 74 mg/dL (<150)
== END 2025-07-01 08:40 | disposition home or self-care (01) ==
LOC: CHSLAB 08:43
PROVIDERS: PCP Internal Medicine; Visit Provider Internal Medicine
DX: E78.2 Mixed hyperlipidemia (principal); M81.0 Age-related osteoporosis without current pathological fracture; I10 Essential (primary) hypertension; R31.29 Other microscopic hematuria; Z85.42 Personal history of malignant neoplasm of other parts of uterus
CPT/HCPCS: 36415; 80053; 80061; 81003; 82306; 82550; 85025

== ENCOUNTER 2025-07-18 11:40 | Outpatient (CLI) | payer MEDICARE, SELFPAY ==
[2025-07-18 13:08] LABS: Free T4 Free Thyroxine 1.11 ng/dL (0.78-2.19)
[2025-07-18 13:09] LABS: Free T3 5.23 pg/mL (2.18-3.98)
[2025-07-18 13:22] LABS: Thyroid Stimulating Hormone 2.380 uIU/mL (0.465-4.680)
== END 2025-07-18 11:41 | disposition home or self-care (01) ==
PROVIDERS: PCP Internal Medicine; Visit Provider Internal Medicine
DX: L65.9 Nonscarring hair loss, unspecified (principal)
CPT/HCPCS: 36415; 84439; 84443; 84481

== ENCOUNTER 2025-08-10 08:42 | Outpatient (CLI) | payer MEDICARE, SELFPAY ==
--- NOTE | ~2025-08-10 | MR_ITS ---
EXAMINATION: MR knee LT wo con DATE: 08/10/2025 09:06 INDICATION: Left posterior knee pain. TECHNIQUE: Magnetic resonance imaging (MRI) of the left knee was performed without intravenous contrast. Sequences included axial PD-weighted FS FSE, coronal PD-weighted FSE and PD-weighted FS FSE, sagittal PD-weighted FSE, and sagittal T2-weighted FS FSE. COMPARISON: None. FINDINGS: Medial compartment: Medial meniscus is normal. There is shallow partial-thickness cartilage loss of femoral condyle, worst posteriorly. There is cartilage surface irregularity of tibial condyle. There are tiny osteophytes. Lateral compartment: There is a radial tear of body of lateral meniscus. There is deep partial- thickness cartilage loss of tibial condyle, worst at the medial and central articular surface with mild subchondral edema-like marrow signal intensity. There is cartilage surface irregularity of femoral condyle. There are tiny os teophytes. Patellofemoral compartment: There is full-thickness cartilage loss of patellar median ridge with mild subchondral edema-like marrow signal intensity. There is shallow partial- thickness cartilage loss of patellar medial facet and lateral facet. There is shallow partial-thickness cartilage loss of trochlea. Ligaments and tendons: The anterior and posterior cruciate ligaments are normal. Medial collateral ligament is normal. There are changes of prior sprain of lateral collateral ligament characterized by thickening and increased signal intensity proximally. There is mild patellar tendinopathy. Fluid: There is a large knee joint effusion. There is a large Wing's cyst. There is moderate superficial infrapatellar bursitis. Osseous/other: There is edema-like marrow signal intensity in proximal tibia anteriorly, which may be contusion. IMPRESSION: 1. Severe chondrosis of patellofemoral compartment, moderate chondrosis of lateral compartment, and mild chondrosis of medial compartment. 2. Tear of lateral meniscus. 3. Large knee joint effusion. 4. Large Wing's cyst. Reviewed, dictated and finalized at location E. GRATION SERVICES OFFICER IMPRESSION: 1. Severe chondrosis of patellofemoral compartment, moderate chondrosis of late ral compartment, and mild chondrosis of medial compartment. 2. Tear of lateral meniscus. 3. Large knee joint effusion. 4. Large Wing's cyst.
== END 2025-08-10 08:43 | disposition home or self-care (01) ==
LOC: CHSIMG 08:43
PROVIDERS: PCP Internal Medicine; Visit Provider Internal Medicine
DX: M25.562 Pain in left knee (principal); M79.89 Other specified soft tissue disorders; M22.2X2 Patellofemoral disorders, left knee; S83.282A Other tear of lateral meniscus, current injury, left knee, initial encounter; M25.462 Effusion, left knee; M71.22 Synovial cyst of popliteal space [Baker], left knee
CPT/HCPCS: 73721

== ENCOUNTER 2025-08-28 10:08 | Outpatient (CLI) | payer MEDICARE, SELFPAY ==
[2025-08-28 10:46] LABS: Alanine Aminotransferase 32 U/L (6-35); Albumin Level 4.5 g/dL (3.5-5.1); Alkaline Phosphatase 74 U/L (38-126); Anion Gap 13 mmol/L (4-12); Aspartate Amino Transferase 35 U/L (14-36); Bilirubin,Total 0.3 mg/dL (0.2-1.3); Blood Urea Nitrogen 10 mg/dL (7-17); Calcium 9.3 mg/dL (8.4-10.2); Carbon Dioxide 28 mmol/L (22-30); Chloride 104 mmol/L (98-107); Estimated Glomerular Filt Rate 55; Glucose 89 mg/dL (65-110); Osmolality Calculated 298 mOsm/kg (285-295); Potassium 4.1 mmol/L (3.4-5.0); Sodium 145 mmol/L (137-145); Total Protein 7.2 g/dL (6.3-8.2)
--- OUTSIDE RECORDS SUMMARY | 2025-08-28 11:24 | XMS_ITS | Clinical Summary ---
Author Organization [facility] Address [facility] [place] [address] Care Team Providers Care Logging Rafter Laborer Name Role Phone Veronica Wang MD Primary Care Provider [phone] Social History Tobacco Use Types Packs/Day Years Used Date Smoking Tobacco: Never Assessed Comments Unknown Sex and Gender Information Value Date Recorded Sex Assigned at Not on file Legal Sex Female 9:52 PM SPA EXPERIENCE COORDINATOR Gender Identity Not on file Sexual Orientation Not on file Plan of Treatment Health Maintenance Due Date Last Done Comments Colorectal Cancer Screening Colonoscopy (10 Years) 1950 Hepatitis C 1969 DTaP, Tdap and Td Vaccines (1 - Tdap) 1970 Mammogram Screening 1991 Annual Medicare Wellness Visit 2016 Dexa Scan (General) 2016 COVID-19 Vaccine ( season) 2025 07/18/2023, 12/26/2020, 12/05/2020 Influenza Adult (#1) 2025 07/08/2022, 07/05/2017, 08/03/2016, Additional history exists RSV Immunization or 60+ Years (1 - 1-dose 75+ series) 2026 Pneumococcal Vaccine: 50+ Years Completed 05/03/2017, 05/26/2015 Zoster Vaccines Completed 08/12/2018, 05/27, 08/11/2012 Hepatitis A Vaccines Aged Out No long er eligible based on patient's age to complete this topic Meningococcal B Vaccine Aged Out No l onger eligible based on patient's age to complete this topic Meningococcal Vaccine Aged Out No millie carlo eligible based on patient's age to complete this topic RSV Immunizations Under 20 Months Aged Out No longer eligible based on patient's age to complete this topic Insurance MEDICARE GENERIC - COMMERCIAL Care Teams Logging Rafter Laborer Relationship Specialty Start Date End Date Veronica Wang MD [address] [place] [id number] PCP - General INTERNAL MEDICINE 09/28/24
== END 2025-08-28 10:09 | disposition home or self-care (01) ==
LOC: CHSLAB 10:10
PROVIDERS: PCP Internal Medicine; Visit Provider Internal Medicine
DX: R74.01 Elevation of levels of liver transaminase levels (principal)
CPT/HCPCS: 36415; 80053